=== PATIENT | male | born 1935 | race Caucasian/White ===

== ENCOUNTER 2024-09-19 15:18 | Emergency (ER) | payer MEDICARE, OTHER ==
--- OUTSIDE RECORDS SUMMARY | 2024-09-19 15:26 | XMS REPORT | Continuity of Care Document ---
Author Name Unknown Address [address] [facility] [place] [address] [facility] Address [address] [facility] [place] [address] Care Team Providers Care Box Office Manager Name Role Phone Shanti Buckley Primary Care Physician [phone] REYMUNDO SAGE Attending Clinician Unavailab le Deidra Kilpatrick MD Attending Clinician [phone] MEREDITH SHANKS Attending Clinician UnavailMeredith Elizabeth MD Attending Clinician DEIDRA KILPATRICK Attending Clinician Reymundo Myles Attending Clinician Unavailable ADOLFO GONSALEZ Attending Clinician Unavailable Eduardo Simpson MD Attending Clinician REYMUNDO SAGE M.D. Attending Clinician Unavail able TAYLOR CONKLIN P.A. Attending Clinician Unavail REYMUNDO Navas Admitting Clinician Unavailab Reymundo Kumar Admitting Clinician Unavailable Physician, No Primary or Family Admitting Clinic halle Unavailable LETY JUAREZ Admitting Clinician Unavail able Payers Payer Name Policy Type Policy Number Effective Date Expirati on Date Source MEDICARE PART A AND B [id number] 2001 00:00:00 MEDICARE PART A AND B Medicare [id number] 2023 00:00:00 [facility] Other [id number] 2023 00:00:00 Problems Condition Name Condition Details Condition Category Status Onset Date Resolution Date Last Treatment Date Treating Clinician Comments Source Hearing loss Hearing loss Disease Active 8-15 00:00: 00 Kuldip Devine Keloid scar Keloid Scar Problem Active 7-30 00:00: 00 [facility] 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 Active 7 00:00: 00 [facility] Pain of right lower leg Pain of Right Lower Leg Problem Active 703 00:00: 00 [facility] Abscess of knee Abscess of Knee Problem Active 11-15 00:00: 00 [facility] Abscess of lower leg Abscess of Lower Leg Problem Active 11-15 00:00: 00 [facility] 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 Active 11-15 00:00: 00 [facility] NENITA (iron deficiency anemia) NENITA (iron deficiency anemia) Disease Active 11-12 00:00: 00 Kuldip Devine Mixed hyperlipid emia Mixed hyperlipid emia Disease Active 11-12 00:00: 00 Kuldip Devine S/P TKR (total knee replacemen t) S/P TKR (total knee replacemen t) Disease Active 11-12 00:00: 00 Kuldip Devine Simple obesity Simple obesity Disease Active 11-12 00:00: 00 Kuldip Devine Bladder cancer Bladder cancer Disease Active 11-12 00:00: 00 Kuldip Devine HTN (hypertens ion) HTN (hypertens ion) Disease Active 11-12 00:00: 00 Kuldip Devine Pain of right knee joint Pain of Right Knee Joint Problem Active 11-10 00:00: 00 [facility] Benign essential hypertensi on Benign essential hypertensi on Disease Active 1-05 00:00: 00 Kuldip Devine History of High blood pressure History of High blood pressure Problem Resolve d [facility] Right knee pain Right knee pain Problem Active [facility] 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 Active [facility] Aftercare following right knee joint replacemen t surgery Aftercare following right knee joint replacemen t surgery Problem Active [facility] Draining postoperat daija wound, initial encounter Draining postoperat daija wound, initial encounter Problem Active [facility] Dehiscence of incision Dehiscence of incision Problem Active [facility] 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 [facility] Redness and swelling of knee Redness and swelling of knee Problem Active [facility] Allergies, Adverse Reactions, Alerts Allergy Name Allergy Type Status Severity Reaction(s) Onset Date Inactive Date Treating Clinician Comments Source No Known Allergie s DA Active U 12-19 00:00: 00 [facility] NO KNOWN ALLERGIE S SYSTEMIC Active [facility] NO KNOWN ALLERGIE S SYSTEMIC Active [facility] NO KNOWN ALLERGIE S SYSTEMIC Active [facility] NO KNOWN ALLERGIE S SYSTEMIC Active [facility] NO KNOWN ALLERGIE S SYSTEMIC Active [facility] ALLERGIE S NOT ON FILE SYSTEMIC Active [facility] NO KNOWN ALLERGIE S SYSTEMIC Active [facility] NO KNOWN ALLERGIE S SYSTEMIC Active [facility] NO KNOWN ALLERGIE S SYSTEMIC Active [facility] Social History Social Habit Start Date Stop Date Quantity Comments Source Gender identity 2023-08-21 00:06:32 Identifies as male gender (finding) [facility] History of tobacco use Current smoker [facility] Sexual orientation [facility] History of Social function 2023-11-04 00:00:00 2023-11-04 00:00:00 [facility] Exposure to SARS-CoV-2 (event) 2022-08-31 00:00:00 2022-09-10 13:52:00 Not sure [facility] Tobacco use and exposure 2022-09-10 00:00:00 2022-09-10 00:00:00 Smokeless tobacco non-user [facility] Alcoholic beverage intake 2022-09-10 00:00:00 2022-09-10 00:00:00 Current drinker of alcohol (finding) [facility] Sex assigned at 1935 00:00:00 1935 00:00:00 [facility] Smoking Status Start Date Stop Date Source Ex-smoker [facility] Never smoked tobacco [facility] Medications Ordered Medication Name Filled Medication Name Start Date Stop Date Current Medication? Ordering Clinician Indication Dosage Frequency Signature (SIG) Comments Components Source moexipril (Univasc) 15 MG tablet moexipril (Univasc) 15 MG tablet 2023-05 012 00:00: 00 03-21 00:00 :00 No [id number] 7.5mg QD Take 0.5 tablets by mouth 1 time each day. [facility] [place] [facility] sulfamethox azole-trime thoprim (Bactrim DS) 800-160 MG per tablet sulfamethox azole-trime thoprim (Bactrim DS) 800-160 MG per tablet 9-16 00:00: 00 02-12 23:59 :00 No [id number] 1{tbl} Take 1 tablet by mouth 1 time for 1 dose. Take one tablet morning of procedure [facility] moexipril (Univasc) 7.5 MG tablet moexipril (Univasc) 7.5 MG tablet 01-11 00:00: 00 03-10 00:00 :00 No [id number] 7.5mg QD Take 1 tablet by mouth 1 time each day. Goal BP < 140/90 Kuldip Devine celecoxib (CeleBREX) 200 MG capsule celecoxib (CeleBREX) 200 MG capsule 12-22 00:00: 00 Yes TAKE 1 CAPSULE BY MOUTH TWICE DAILY WITH MEALS FOR 14 DAYS Kuldip Devine doxycycline (Monodox) 100 MG capsule doxycycline (Monodox) 100 MG capsule 11-12 21:42: 27 01-11 00:00 :00 No 100mg Q.5D Take 100 mg by mouth in the morning and 100 mg in the evening. Take with at least 8 ounces (large glass) of water, do not lie down for 30 minutes after. Kuldip Devine amoxicillin -clavulanat e (Augmentin) 875-125 MG tablet amoxicillin -clavulanat e (Augmentin) 875-125 MG tablet 11-12 21:42: 27 01-11 00:00 :00 No 875mg Q.5D Take 875 mg by mouth in the morning and 875 mg in the evening. Kuldip Devine amoxicillin (Amoxil) 875 MG tablet amoxicillin (Amoxil) 875 MG tablet 11-12 21:42: 03 11-12 00:00 :00 No 875mg Q.5D Take 875 mg by mouth in the morning and 875 mg in the evening. Kuldip Devine HYDROcodone -acetaminop hen ([place]) 5-325 MG tablet HYDROcodone -acetaminop hen ([place]) 5-325 MG tablet 11-08 15:57: 32 01-11 00:00 :00 No 1{tbl} Q4H 1 tablet every 4 hours if needed for severe pain (7-10). Kuldip Devine senna-docus ate sodium (Senokot-S) 8.6-50 MG tablet senna-docus ate sodium (Senokot-S) 8.6-50 MG tablet 11-08 15:57: 32 01-11 00:00 :00 No 2{tbl} Q24H Take 2 tablets by mouth daily as needed for constipati on. Kuldip Devine LACTOBACILL US RHAMNOSUS, GG, PO LACTOBACILL US RHAMNOSUS, GG, PO 11-08 15:57: 32 01-11 00:00 :00 No 1{capsu le} QD Take 1 capsule by mouth 1 time each day. Kuldip Devine Multiple Vitamin (multivitam in) tablet Multiple Vitamin (multivitam in) tablet 11-08 15:57: 32 01-11 00:00 :00 No 1{tbl} QD Take 1 tablet by mouth 1 time each day. Kuldip Devine omega-3 acid ethyl esters (Lovaza) 1 g capsule omega-3 acid ethyl esters (Lovaza) 1 g capsule 11-08 15:57: 32 01-11 00:00 :00 No 1g QD Take 1 g by mouth 1 time each day. Kuldip Devine moexipril (Univasc) 15 MG tablet moexipril (Univasc) 15 MG tablet 206 00:00: 00 01-11 00:00 :00 No = 1 tab, PO, Daily, # 90 tab, 2 Refill(s), Pharmacy: [facility] 482, 175.26, cm, 07/05/23 14:17:00 [employer], Height, 94.773, kg, 07/05/23 14:17:00 [employer], Weight Kuldip Devine meloxicam (Mobic) 15 MG tablet 4-14 00:00: 00 01-09 04:59 :00 No [id number] 15mg QD Take 1 tablet (15 mg total) by mouth 1 (one) time each day. [facility] Aspirin 81 81 MG Oral Tablet Chewable Aspirin 81 81 MG Oral Tablet Chewable 01-06 00:00: 00 Yes REYMUNDO SAGE M.D. Q0.5D TAKE 1 TABLET Twice daily TDD:2 [facility] Cephalexin 500 MG Oral Capsule Cephalexin 500 MG Oral Capsule 01-06 00:00: 00 Yes REYMUNDO SAGE M.D. 1 Q0.3333D TAKE 1 CAPSULE 3 times daily TDD:3 [facility] Celecoxib 200 MG Oral Capsule Celecoxib 200 MG Oral Capsule 8-10 00:00: 00 Yes REYMUNDO SAGE M.D. TAKE ONE CAPSULE BY MOUTH TWICE A DAY WITH FOOD [facility] Colace 100 MG Oral Capsule Colace 100 MG Oral Capsule 8-10 00:00: 00 Yes REYMUNDO SAGE M.D. Q0.5D TAKE 1 CAPSULE TWICE DAILY NEEDED. [facility] Ondansetron HCl - 4 MG Oral Tablet Ondansetron HCl - 4 MG Oral Tablet 8-10 00:00: 00 Yes REYMUNDO SAGE M.D. 1 Q8H TAKE 1 TABLET Every 8 hours PRN TDD:2 [facility] Gabapentin 300 MG Oral Capsule Gabapentin 300 MG Oral Capsule 810 00:00: 00 Yes REYMUNDO SAGE M.D. TAKE 1 CAPSULE AT BEDTIME. [facility] traMADol HCl - 50 MG Oral Tablet traMADol HCl - 50 MG Oral Tablet 810 00:00: 00 Yes REYMUNDO SAGE M.D. TAKE 1 TABLET EVERY 4 TO 6 HOURS NEEDED. [facility] Minocycline HCl - 100 MG Oral Capsule Minocycline HCl - 100 MG Oral Capsule 8-06 00:00: 00 Yes REYMUNDO SAGE M.D. 1 Q0.5D TAKE 1 CAPSULE TWICE DAILY [facility] aspirin 81 MG oral suspension aspirin 81 MG oral suspension 8-06 00:00: 00 Yes 0 Refill(s) Kuldip Hdez [facility] Adult Aspirin Regimen 81 MG Oral Tablet Delayed Release Adult Aspirin Regimen 81 MG Oral Tablet Delayed Release 0 6-19 00:00: 00 Yes TAYLOR CONKLIN P.Leonela Take 1 tab PO BID for DVT prophylaxs is [facility] Ciprofloxac in HCl - 500 MG Oral Tablet Ciprofloxac in HCl - 500 MG Oral Tablet 0 6-13 00:00: 00 Yes REYMUNDO SAGE M.D. Q12H TAKE 1 TABLET EVERY 12 HOURS DAILY. [facility] traMADol HCl - 50 MG Oral Tablet traMADol HCl - 50 MG Oral Tablet 2019-0 6-09 00:00: 00 Yes REYMUNDO SAGE M.D. TAKE 1 TABLET EVERY 4 TO 6 HOURS NEEDED. [facility] Aspirin 81 81 MG Oral Tablet Chewable Aspirin 81 81 MG Oral Tablet Chewable 2019-0 09 00:00: 00 Yes REYMUNDO SAGE Krystle 1 Q0.5D TAKE 1 TABLET Twice daily TDD:2 [facility] Celecoxib 200 MG Oral Capsule Celecoxib 200 MG Oral Capsule 2019-0 - 00:00: 00 Yes REYMUNDO RuvalcabaKimber Q0.5D TAKE 1 CAPSULE TWICE DAILY WITH FOOD. [facility] Colace 100 MG Oral Capsule Colace 100 MG Oral Capsule 2019-0 -09 00:00: 00 Yes REYMUNDO RuvalcabaKimber Q0.5D TAKE 1 CAPSULE TWICE DAILY NEEDED. [facility] Gabapentin 300 MG Oral Capsule Gabapentin 300 MG Oral Capsule 2019-0 11-05 00:00: 00 Yes REYMUNDO RuvalcabaKimber TAKE 1 CAPSULE AT BEDTIME. [facility] Ondansetron HCl - 4 MG Oral Tablet Ondansetron HCl - 4 MG Oral Tablet 2019-0 11-05 00:00: 00 Yes DWYER NANCYGAYE Krystle 1 Q8H TAKE 1 TABLET Every 8 hours PRN TDD:2 [facility] Celecoxib 200 MG Oral Capsule Celecoxib 200 MG Oral Capsule 2019-0 10-28 00:00: 00 Yes REYMUNDO RuvalcabaKimber Q0.5D TAKE 1 CAPSULE TWICE DAILY WITH FOOD. [facility] Aspirin 81 MG Oral Tablet Chewable Aspirin 81 MG Oral Tablet Chewable 2019-0 18 00:00: 00 Yes REYMUNDO RuvalcabaKimber 1 Q0.5D TAKE 1 TABLET TWICE DAILY [facility] Celecoxib 200 MG Oral Capsule Celecoxib 200 MG Oral Capsule 2019-0 18 00:00: 00 Yes REYMUNDO RuvalcabaKimber 1 Q0.5D TAKE 1 CAPSULE TWICE DAILY [facility] Colace 100 MG Oral Capsule Colace 100 MG Oral Capsule 2019-0 -18 00:00: 00 Yes REYMUNDO RuvalcabaKimber Q0.5D TAKE 1 CAPSULE TWICE DAILY. [facility] Ondansetron HCl - 4 MG Oral Tablet Ondansetron HCl - 4 MG Oral Tablet 2019-0 -18 00:00: 00 Yes REYMUNDO RuvalcabaKimber 1 Q8H TAKE 1 TABLET EVERY 8 HOURS [facility] Gabapentin 300 MG Oral Capsule Gabapentin 300 MG Oral Capsule 2019-0 5-18 00:00: 00 Yes REYMUNDO SAGE M.D. 1 TAKE 1 CAPSULE BEDTIME [facility] traMADol HCl - 50 MG Oral Tablet traMADol HCl - 50 MG Oral Tablet 10-14 00:00: 00 Yes REYMUNDO RuvalcabaKimber Take 1 tab Q4-6H prn for pain [facility] doxycycline hyclate 100 mg tablet doxycycline hyclate 100 mg tablet No doxycyclin e hyclate 100 mg tablet [facility] aspirin 81 mg tablet,yaima yed release Take 1 tablet twice a day by oral route with meals for 30 days. to prevent a blood clot aspirin 81 mg tablet,yaima yed release Take 1 tablet twice a day by oral route with meals for 30 days. to prevent a blood clot No 1 BID aspirin 81 mg tablet,del ayed release Take 1 tablet twice a day by oral route with meals for 30 days. to prevent a blood clot [facility] gabapentin 300 mg capsule TAKE 1 CAPSULE BY MOUTH ONCE DAILY NEEDED gabapentin 300 mg capsule TAKE 1 CAPSULE BY MOUTH ONCE DAILY NEEDED No gabapentin 300 mg capsule TAKE 1 CAPSULE BY MOUTH ONCE DAILY NEEDED [facility] hydrocodone 10 mg-acetamin ophen 325 mg tablet TAKE 1 TABLET BY MOUTH EVERY 6 HOURS NEEDED hydrocodone 10 mg-acetamin ophen 325 mg tablet TAKE 1 TABLET BY MOUTH EVERY 6 HOURS NEEDED No 1 Q6H hydrocodon e 10 mg-acetami nophen 325 mg tablet TAKE 1 TABLET BY MOUTH EVERY 6 HOURS NEEDED [facility] methocarbam ol 500 mg tablet TAKE 1 TABLET BY MOUTH THREE TIMES DAILY NEEDED methocarbam ol 500 mg tablet TAKE 1 TABLET BY MOUTH THREE TIMES DAILY NEEDED No methocarba mol 500 mg tablet TAKE 1 TABLET BY MOUTH THREE TIMES DAILY NEEDED [facility] ondansetron HCl 4 mg tablet TAKE 1 TABLET BY MOUTH EVERY 8 HOURS NEEDED ondansetron HCl 4 mg tablet TAKE 1 TABLET BY MOUTH EVERY 8 HOURS NEEDED No ondansetro n HCl 4 mg tablet TAKE 1 TABLET BY MOUTH EVERY 8 HOURS NEEDED [facility] tramadol 50 mg tablet TAKE 1 TABLET BY MOUTH EVERY 6 HOURS NEEDED tramadol 50 mg tablet TAKE 1 TABLET BY MOUTH EVERY 6 HOURS NEEDED No tramadol 50 mg tablet TAKE 1 TABLET BY MOUTH EVERY 6 HOURS NEEDED [facility] docusate sodium 100 mg capsule TAKE 1 CAPSULE BY MOUTH TWICE DAILY NEEDED docusate sodium 100 mg capsule TAKE 1 CAPSULE BY MOUTH TWICE DAILY NEEDED No docusate sodium 100 mg capsule TAKE 1 CAPSULE BY MOUTH TWICE DAILY NEEDED [facility] eq adult ld aspirin 81mg tab TAKE 1 TABLET BY MOUTH TWICE DAILY WITH MEALS eq adult ld aspirin 81mg tab TAKE 1 TABLET BY MOUTH TWICE DAILY WITH MEALS No eq adult ld aspirin 81mg tab TAKE 1 TABLET BY MOUTH TWICE DAILY WITH MEALS [facility] vancomycin 5 gram intravenous solution vancomycin 5 gram intravenous solution No vancomycin 5 gram intravenou s solution [facility] doxycycline hyclate 100 mg capsule TAKE 1 CAPSULE BY MOUTH TWICE DAILY AROUND THE CLOCK doxycycline hyclate 100 mg capsule TAKE 1 CAPSULE BY MOUTH TWICE DAILY AROUND THE CLOCK No 1capsul e(s) BID doxycyclin e hyclate 100 mg capsule TAKE 1 CAPSULE BY MOUTH TWICE DAILY AROUND THE CLOCK [facility] lisinopril 10 mg tablet TAKE 1 TABLET BY MOUTH ONCE DAILY, GOAL BLOOD PRESSURE LESS THAN 150/90 lisinopril 10 mg tablet TAKE 1 TABLET BY MOUTH ONCE DAILY, GOAL BLOOD PRESSURE LESS THAN 150/90 No lisinopril 10 mg tablet TAKE 1 TABLET BY MOUTH ONCE DAILY, GOAL BLOOD PRESSURE LESS THAN 150/90 [facility] Immunizations Ordered Immunization Name Filled Immunization Name Date Status Comments Source Pneumococcal Conjugate PCV 13 Pneumococcal Conjugate PCV 13 2017-07-28 00:00:00 Completed [facility] Pneumococcal Polysaccharide PPSV23 Pneumococcal Polysaccharide PPSV23 2006-03-18 00:00:00 [facility] Vital Signs Vital Name Observation Time Observation Value Comments S ource Body Weight 2024-03-30 00:00:00 200 [lb_av] [facility] BMI (Body Mass Index) 2024-03-30 00:00:00 27.9 kg/m2 [facility] Height 2024-03-30 00:00:00 71 [in_i] Dia [facility] Systolic blood pressure 2024-02-13 14:26:00 121 mm[Hg] [facility] Diastolic blood pressure 2024-02-13 14:26:00 62 mm[Hg] [facility] Heart rate 2024-02-13 14:26:00 86 /min [facility] [place] [facility] Body height 2024-02-13 14:26:00 180.3 cm [facility] [place] [facility] Body weight 2024-02-13 14:26:00 88.905 kg [facility] BMI 2024-02-13 14:26:00 27.34 kg/m2 [facility] [place] [facility] Systolic blood pressure 2024-02-13 14:26:00 121 mm[Hg] [facility] Diastolic blood pressure 2024-02-13 14:26:00 62 mm[Hg] [facility] Epic Heart rate 2024-02-13 14:26:00 86 /min [facility] Body height 2024-02-13 14:26:00 180.3 cm [facility] [place] [facility] Body weight 2024-02-13 14:26:00 88.905 kg [facility] BMI 2024-02-13 14:26:00 27.34 kg/m2 [facility] [place] [facility] BMI (Body Mass Index) 2024-01-23 00:00:00 27.9 kg/m2 [facility] Body Weight 2024-01-23 00:00:00 200 [lb_av] Aza lar[facility] Height 2024-01-23 00:00:00 71 [in_i] [facility] Systolic blood pressure 2024-01-12 10:36:00 97 mm[Hg] [facility] Diastolic blood pressure 2024-01-12 10:36:00 59 mm[Hg] [facility] Epic Heart rate 2024-01-12 10:36:00 77 /min [facility] [place] [facility] Body weight 2024-01-12 10:36:00 96.163 kg [facility] [place] [facility] BMI 2024-01-12 10:36:00 36.39 kg/m2 [facility] [place] [facility] Systolic blood pressure 2024-01-12 10:36:00 97 mm[Hg] [facility] Epic Diastolic blood pressure 2024-01-12 10:36:00 59 mm[Hg] [facility] Heart rate 2024-01-12 10:36:00 77 /min [facility] Body weight 2024-01-12 10:36:00 96.163 kg [facility] BMI 2024-01-12 10:36:00 36.39 kg/m2 [facility] Systolic blood pressure 2023-11-09 15:58:00 106 mm[Hg] [facility] Diastolic blood pressure 2023-11-09 15:58:00 63 mm[Hg] [facility] Heart rate 2023-11-09 15:58:00 65 /[facility] 2023-11-09 15:58:00 36.5 Khadijah [facility] Body weight 2023-11-09 15:58:00 91.627 kg [facility] BMI 2023-11-09 15:58:00 29.83 kg/m2 [facility] Systolic blood pressure 2023-11-09 15:58:00 106 mm[Hg] [facility] Diastolic blood pressure 2023-11-09 15:58:00 63 mm[Hg] [facility] Heart rate 2023-11-09 15:58:00 65 /min [facility] Body temperature 2023-11-09 15:58:00 36.5 Khadijah [facility] Body weight 2023-11-09 15:58:00 91.627 kg [facility] BMI 2023-11-09 15:58:00 29.83 kg/m2 [facility] Procedures Procedure Date / Time Performed Performing Clinician Source Cystourethroscopy 2024-08-12 00:00:00 [facility] XR, knee, 3 view 2024-02-17 00:00:00 Joss mott [facility] POCT URINE DIPSTICK (INTRFC) 2024-02-13 14:26:00 Meredith Shanks [facility] CBC and differential 2024-01-12 00:00:00 [facility] Vitamin B12 2024-01-12 00:00:00 [facility] Folate 2024-01-12 00:00:00 [facility] Iron + transferrin + TIBC 2024-01-12 00:00:00 [facility] Ferritin 2024-01-12 00:00:00 [facility] Hemoglobin A1c 2024-01-12 00:00:00 Azra Ruff [facility] [id number] 2023-12-23 00:00:00 [facility] [id number] 2023-12-23 00:00:00 [facility] [id number] 2023-12-22 00:00:00 [facility] [id number] 2023-12-22 00:00:00 [facility] [id number] 2023-12-22 00:00:00 [facility] [id number] 2023-12-22 00:00:00 [facility] [id number] 2023-12-22 00:00:00 [facility] XR, tibia + fibula, 2 view 2023-11-11 00:00:00 [facility] [QL] SED RATE BY MODIFIED NED 2020-03-31 00:00:00 [facility] [QL] C-REACTIVE PROTEIN 2020-03-31 00:00:00 [facility] [U] XRAY KNEE 3 VWS RIGHT [id number] 2020-02-15 00:00:00 [facility] Post Op Promis 29 Survey 2020-01-25 00:00:00 [facility] Post Op Promis 29 Survey 2019-11-08 00:00:00 [facility]nee [facility] FISH Bladder Cancer [facility] Encounters Start Date/Time End Date/Time Encounter Type Admission Type Attending Clinicians Care Facility Care Department Encounter ID Source 2022-09-10 13:54:45 Outpatient [facility] [id number] [facility] 2022-09-03 11:28:57 Outpatient [facility] [id number] [facility] 2022-08-31 15:36:14 Outpatient [facility] [id number] [facility] 2022-08-30 08:53:40 Outpatient [facility] [id number] [facility] 2022-06-04 12:55:43 Outpatient [facility] [id number] [facility] 2019-11-06 06:02:54 Inpatient RE[facility]UNDO SAGE [id number] 2024-04-09 00:00:00 2024-04-13 13:50:53 Erroneous Telephone Encounter Deidra Kilpatrick [facility] [id number] Kuldip Hdez [facility] 2024-03-30 00:00:00 2024-03-30 00:00:00 Reymundo [place]age II, MD: [id number] [address], [place] [address] , Ph. [phone] [facility] [place] [facility] [place] [facility] [place] [id number] [facility] 2024-03-19 00:00:00 2024-03-21 21:03:18 Telephone Deidra Kilpatrick [facility] [id number] [facility] 2024-03-08 00:00:00 2024-03-10 19:11:42 [facility] [id number] [facility] 2024-02-17 00:00:00 2024-02-17 00:00:00 Reymundo Sage II, MD: [id number] [facility] [address], [place] [address] , Ph. [phone] [facility] [place] [facility] [place] [facility] [place] [id number] [facility] 2024-02-13 14:20:28 2024-02-13 14:58:20 Outpatient Elective MEREDITH SHANKS EOUT EOUT [id number] [facility] 2024-02-13 14:30:00 2024-02-13 14:45:00 Office Visit Meredith Shanks [place] [address] [id number] Kuldip Hdez [facility] 2024-01-23 00:00:00 2024-01-23 00:00:00 Barby Parsons MD: [id number] [place] [address] , Ph. [phone] [facility] [place] [facility] [place] [facility] [id number] [facility] 2024-01-12 10:23:00 2024-01-12 11:41:41 Outpatient Elective DEIDRA KILPATRICK [facility] EOUT [id number] [facility] 2024-01-12 10:20:00 2024-01-12 11:41:41 Office Visit Deidra Kilpatrick [facility] [id number] 5 Kuldip Hdez [facility] 2024-01-06 00:00:00 2024-01-06 00:00:00 LATOSHA Villalta: [address] [address] , Ph. [phone] [facility] [place] [facility] [place] [facility] [place] [id number] [facility] 2023-12-29 00:00:00 2023-12-30 17:02:11 Erroneous Telephone Encounter Deidra Kilpatrick [facility] [id number] [id number] Kuldip Hdez [facility] 2023-11-28 00:00:00 2023-12-29 23:52:36 Telephone Deidra Kilpatrick [facility] [id number] Kuldip Hdez [facility] 2023-12-22 10:05:00 2023-12-26 18:24:00 Inpatient Reymundo Vincent [facility] SURG [id number] [facility] 2023-12-22 00:00:00 2023-12-22 00:00:00 Reymundo Sage II, MD: [address] [place] [address] , Ph. [phone] [facility] [place] [facility] [place] [facility] [id number] [facility] 2023-12-20 14:31:00 2023-12-20 14:31:00 Outpatient Reymundo Sage HCACL LABO [id number] [facility] 2023-12-16 14:20:00 2023-12-16 14:20:00 Outpatient Alona [place] HCACL LABO [id number] [facility] 2023-12-16 11:07:00 2023-12-16 11:07:00 Outpatient ALLYSON Sage Dwyer HCATO RADI [id number] [facility] 2023-12-09 00:00:00 2023-12-09 00:00:00 Reymundo Sage II, MD: [address] [address] , Ph. [phone] [facility] [place] [facility] [place] [id number] [facility] 2023-11-11 00:00:00 2023-11-11 00:00:00 Reymundo Sage II, MD: [address] [address] , Ph. [phone] [facility] [place] [facility] [place] [id number] [id number] [facility] 2023-11-09 15:00:00 2023-11-09 16:29:13 Office Visit Deidra Kilpatrick [facility] [id number] [facility] 2023-11-09 14:58:10 2023-11-09 16:29:13 Outpatient Elective DEIDRA KILPATRICK [facility] [id number] [facility] 2023-10-27 19:41:00 2023-11-02 15:58:00 Inpatient E ADOLFO GONSALEZ [facility] MED [id number] 33 [facility] 2023-10-31 00:00:00 2023-10-31 00:00:00 Reymundo Sage II, MD: [address] [place] [address] , Ph. [phone] [facility] - [facility] [place] [facility]Surgery [id number] [facility] 2022-09-10 14:15:00 2022-09-10 15:21:24 Outpatient [facility] [id number] [facility] 2022-09-10 14:30:00 2022-09-10 15:20:44 Office Visit Eduardo Simpson [facility] 2 [id number] [facility] 2021-10-08 08:27:00 2021-10-08 14:50:00 Outpatient MEREDITH SHANKS [facility] URO 75[address] [facility] 2020-03-31 14:30:00 2020-03-31 14:30:00 Appointmen t; REYMUNDO SAGE M.D. BRAL[place], [place], M.D. [facility] [id number] [place] [facility] 2020-02-18 14:30:00 2020-02-18 14:30:00 Appointmen t; REYMUNDO SAGE M.D. [place], [place], M.D. [facility] [id number] [place] 2020-01-21 13:45:00 2020-01-21 13:45:00 Appointmen t; TAYLOR CONKLIN, P.ATAYLOR KELLEY, P.A. [facility] [id number] [place] 2020-01-21 13:40:00 2020-01-21 13:40:00 Appointmen t; TAYLOR CONKLIN P.A. SCHULTZ, JARED, P.A. [facility] [id number] [place] 2020-01-08 05:50:00 2020-01-10 18:45:00 [facility] 2020-01-08 07:30:00 2020-01-08 07:30:00 Appointmen t; REYMUNDO SAGE M.D. [place], [place], M.D. [facility] [id number] [place] 2019-12-31 14:30:00 2019-12-31 14:30:00 Appointmen t; REYMUNDO SAGE M.D. BRAL[place], [place], M.D. [facility] [id number] [place] 2019-12-03 14:15:00 2019-12-03 14:15:00 Appointmen t; REYMUNDO SAGE M.D. [place], [place], M.D. [facility] [id number] [place] 2019-11-26 14:15:00 2019-11-26 14:15:00 Appointmen t; REYMUNDO SAGE M.D. [place]AL[place], [place], M.D. [facility] [id number] [place] 2019-11-19 14:15:00 2019-11-19 14:15:00 Appointmen t; REYMUNDO SAGE M.D. [place], [place], M.D. [facility] [id number] [place] 2019-11-16 10:15:00 2019-11-16 10:15:00 Appointmen t; REYMUNDO SAGE M.D. [place], [place], M.D. [facility] Orthopedics - [place] [address] [id number] [place] 2019-11-12 13:00:00 2019-11-12 13:00:00 Appointmen t; REYMUNDO SAGE M.D. [place], [place], M.D. [facility] [id number] [place] 2019-11-07 11:00:00 2019-11-07 11:00:00 Appointmen t; REYMUNDO SAGE M.D. [place], [place] M.D. [facility] at [facility] Orthopedic [facility] Spine [facility] [id number] [place] 2019-11-05 13:30:00 2019-11-05 13:30:00 Appointmen t; REYMUNDO SAGE M.D. [place], [place], M.D. [facility] - [place] 1 [id number] [place] 2019-10-29 13:00:00 2019-10-29 13:00:00 Appointmen t; REYMUNDO SAGE M.D. [place], [place], M.D. [facility] [id number] [place] 2019-10-15 07:48:00 2019-10-15 16:35:00 [facility] [address] [facility] 2019-10-15 09:00:00 2019-10-15 09:00:00 Appointmen t; REYMUNDO SAGE M.D. BRAL[place], [place], M.D. [facility] at [facility] Orthopedic [facility] Spine [facility] [id number] [place] 2019-10-01 15:30:00 2019-10-01 15:30:00 Appointmen t; REYMUNDO SAGE M.D. [place], [place], M.D. [facility] [place]opedics - [place] 1 [id number] [place] 2019-04-30 14:45:00 2019-04-30 14:45:00 Appointmen t; REYMUNDO SAGE M.D. BRAL[place], [place], M.D. [facility]oped[facility] at [facility] Orthopedic [facility] Spine [facility] [id number] [place] Results Test Description Test Time Test Comments Results Result Co mments Source [facility] EpicVancomycin [id number] 22:47:00* Test Item Value Reference Range Interpretation Comme nts Vancomycin AUC2 (test code = VANCAUC2) 12 mcg/mL 10-20 SPECIMEN COMMENT: Draw Vancomycin AUC2 (trough or pre-dose) 30 minutes prior to the next dose.Vancomycin [id number] 22:46:00* Test Item Value Reference Range Interpretation Comme nts Vancomycin AUC2 (test code = VANCAUC2) 12 mcg/mL 10-20 N SPECIMEN COMMENT: Draw Vancomycin AUC2 (trough or pre-dose) 30 minutes prior to the next dose.vancomycin [id number] 15:00:00* Test Item Value Reference Range Interpretation Comme nts vancomycin auc2 (test code = vancomycin auc2) 12 mcg/mL 10-20 performing lab: (test code = performing lab:) [facility] [id number] 22:37:00* Test Item Value Reference Range Interpretation Comme nts Vancomycin AUC2 (test code = VANCAUC2) 11 mcg/mL 10-20 SPECIMEN COMMENT: Draw Vancomycin AUC2 (trough or pre-dose) 30 minutes prior to the next dose.Vancomycin [id number] 22:37:00* Test Item Value Reference Range Interpretation Comme nts Vancomycin AUC2 (test code = VANCAUC2) 11 mcg/mL 10-20 N SPECIMEN COMMENT: Draw Vancomycin AUC2 (trough or pre-dose) 30 minutes prior to the next dose.vancomycin [id number] 15:00:00* Test Item Value Reference Range Interpretation Comme nts vancomycin auc2 (test code = vancomycin auc2) 11 mcg/mL 10-20 performing lab: (test code = performing lab:) [facility]OLIC [id number] 07:23:00* Test Item Value Reference Range Interpretation Comme nts SODIUM (test code = NA) 141 mmol/L 136-145 N POTASSIUM (test code = K) 5.0 mmol/L 3.5-5.1 N CHLORIDE (test code = CL) 106.0 mmol/L 98-107 N CARBON DIOXIDE (test code = CO2) 29.9 mmol/L 21-32 N GLUCOSE (test code = GLU) 123 mg/dL 74-106 H BLOOD UREA NITROGEN (test code = BUN) 29 mg/dL 7-18 H GLOMERULAR FILTRATION RATE (test code = GFR) 81.6 >60 The Glomerular Filtration Rate is a calculated parameterbased on serum Creatinine, patient age and sex. GFR valuesless than 60 mL/min/1.73 square meters are indicative ofChronic Kidney Disease. Values less than 15 mL/min/1.73square meters indicate Kidney failure. The calculation forGFR is based on the CKD-EPI (202) calculation. This formulais race indifferent and is the recommended formula for GFRby the National Kidney Foundation for Adults.The GFR will not calculate if the sex is unknown or if thepatient's age is <18 years. CREATININE (test code = CREAT) 0.91 mg/dL 0.70-1.30 N CALCIUM (test code = CA) 8.0 mg/dL 8.5-10.1 L CBC W/AUTO [id number] 07:04:00* Test Item Value Reference Range Interpretation Comme nts WHITE BLOOD CELL (test code = WBC) 8.6 K/mm3 5.5-11.0 N RED BLOOD CELL (test code = RBC) 2.99 M/mm3 4.2-5.4 L HEMOGLOBIN (test code = HGB) 7.9 g/dL 12-16 L HEMATOCRIT (test code = HCT) 25.5 % 37-47 L MEAN CELL VOLUME (test code = MCV) 85 fL 80-98 N MEAN CELL HGB (test code = MCH) 26.4 pg 27-34 L MEAN CELL HGB CONCENTRATION (test code = MCHC) 31.0 g/dL 30.8-34.1 N RED CELL DISTRIBUTION WIDTH (test code = RDW) 16.2 % 11-16 H PLT (test code = PLT) 338 K/mm3 130-400 N MEAN PLATELET VOLUME (test c ode = MPV) 9.5 fL 8.9-12.1 N NEUTROPHIL % (test code = NT%) 85.1 % 45-70 H LYMPHOCYTE % (test code = LY%) 8.3 % 20-40 L MONOCYTE % (test code = MO%) 5.7 % 3-10 N EOSINOPHIL % (test code = EO%) 0.0 % 1-5 L BASOPHIL % (test code = BA%) 0.1 % 0.0-1.1 N NEUTROPHIL # (test code = NT#) 7.28 K/mm3 2.00-7.50 N LYMPHOCYTE # (test code = LY#) 0.71 K/mm3 1.50-4.00 L MONOCYTE # (test code = MO#) 0.49 K/mm3 0.2-0.8 N EOSINOPHIL # (test code = EO#) 0.00 K/mm3 0.04-0.4 L BASOPHIL # (test code = BA#) 0.01 K/mm3 0.02-0.10 L MANUAL DIFF REQUIRED (test c ode = MDIFF) NO MANUAL DIFF NUCLEATED RED BLOOD CELL (te st code = NRBC) 0 % 0-0 N Vancomycin [id number] 19:33:00* Test Item Value Reference Range Interpretation Comme nts Vancomycin AUC1 (test code = VANCAUC1) 29.2 mcg/mL 20-60 N SPECIMEN COMMENT: Draw Vancomycin AUC1 (peak or after dose) 1 hour after the end of the Vancomycin infusion.vancomycin [id number] 18:45:00* Test Item Value Reference Range Interpretation Comme nts vancomycin auc1 (test code = vancomycin auc1) 29.2 mcg/mL 20-60 performing lab: (test code = performing lab:) [facility] METABOLIC [id number] 06:49:00* Test Item Value Reference Range Interpretation Comme nts SODIUM (test code = NA) 139 mmol/L 136-145 N POTASSIUM (test code = K) 5.0 mmol/L 3.5-5.1 N CHLORIDE (test code = CL) 103.0 mmol/L 98-107 N CARBON DIOXIDE (test code = CO2) 29.8 mmol/L 21-32 N GLUCOSE (test code = GLU) 136 mg/dL 74-106 H BLOOD UREA NITROGEN (test code = BUN) 28 mg/dL 7-18 H GLOMERULAR FILTRATION RATE (test code = GFR) 62.2 >60 The Glomerular Filtration Rate is a calculated parameterbased on serum Creatinine, patient age and sex. GFR valuesless than 60 mL/min/1.73 square meters are indicative ofChronic Kidney Disease. Values less than 15 mL/min/1.73square meters indicate Kidney failure. The calculation forGFR is based on the CKD-EPI (202) calculation. This formulais race indifferent and is the recommended formula for GFRby the National Kidney Foundation for Adults.The GFR will not calculate if the sex is unknown or if thepatient's age is <18 years. CREATININE (test code = CREAT) 1.14 mg/dL 0.70-1.30 N CALCIUM (test code = CA) 7.7 mg/dL 8.5-10.1 L SPECIMEN COMMENT: POD #1HGB [id number] 06:22:00* Test Item Value Reference Range Interpretation Comme nts HEMOGLOBIN (test code = HGB) 7.7 g/dL 12-16 L HEMATOCRIT (test code = HCT) 24.7 % 37-47 L SPECIMEN COMMENT: POD #1Hemoglobin and Hematocrit panel - [id number] 04:30:00* Test Item Value Reference Range Interpretation Comme nts hemoglobin (test code = hemoglobin) 7.7 g/dL 12-16 L hematocrit (test code = hematocrit) 24.7 % 37-47 L performing lab: (test code = performing lab:) [facility] [id number] 04:30:00* Test Item Value Reference Range Interpretation Comme nts sodium (test code = sodium) 139 mmol/L 136-145 potassium (test code = potassium) 5.0 mmol/L 3.5-5.1 chloride (test code = chloride) 103.0 mmol/L 98-107 carbon dioxide (test code = carbon dioxide) 29.8 mmol/L 21-32 glucose (test code = glucose) 136 mg/dL 74-106 H blood urea nitrogen (test co de = blood urea nitrogen) 28 mg/dL 7-18 H glomerular filtration rate ( test code = glomerular filtration rate) 62.2 >60 creatinine (test code = creatinine) 1.14 mg/dL 0.70-1.30 calcium (test code = calcium) 7.7 mg/dL 8.5-10.1 L performing lab: (test code = performing lab:) [facility]OSYLATED HEMOGLOBIN (HA1C)2023-12-20 22:22:00* Test Item Value Reference Range Interpretation Comme nts GLYCOSYLATED HEMOGLOBIN (HA1C) (test code = GLYHGB) 5.0 % 4.8-5.9 Any conditi on that shortens erythocyte survival or decreasesmean erythrocyte age (e.g., recovery from acute blood loss,hemolytic anemai) will falsely lower HGBA1c resultsregardless of the method used. HGBA1c results frompatients with HbSS, HbCC and HbSc must be interpreted withcaution given the pathological processes, including anemia,increased red cell turnover, transfusion requirements, thatadversely impact HGBA1c as a marker of long-term glycemiccontrol. Alternative forms of testing such as fructosamineshould be considered for these patients.Any condition that shortens erythocyte survival or decreasesmean erythrocyte age (e.g., recovery from acute blood loss,hemolytic anemia) will falsely lower HGBA1c resultsregardless of the method used. HGBA1c results from patientswith HbSS, HbCC, and HbSc must be interpreted with cautiongiven the pathological processes, including anemia,increased red cell turnover, transfusion requirements, thatadversely impact HGBA1c as a marker of long-term glycemiccontrol. Alternative forms of testing such as fructosamineshould be considered for these patients.DONE AT: [facility] [address], [place] [address] GLYCOSYLATED HEMOGLOBIN (HA1C)2023-12-20 22:22:00* Test Item Value Reference Range Interpretation Comme nts GLYCOSYLATED HEMOGLOBIN (HA1C) (test code = GLYHGB) 5.0 % 4.8-5.9 N Any conditi on that shortens erythocyte survival or decreasesmean erythrocyte age (e.g., recovery from acute blood loss,hemolytic anemia) will falsely lower HGBA1c resultsregardless of the method used. HGBA1c results from patientswith HbSS, HbCC, and HbSc must be interpreted with cautiongiven the pathological processes, including anemia,increased red cell turnover, transfusion requirements, thatadversely impact HGBA1c as a marker of long-term glycemiccontrol. Alternative forms of testing such as fructosamineshould be considered for these patients. C REACTIVE [id number] 14:13:00* Test Item Value Reference Range Interpretation Comme nts C REACTIVE PROTEIN (test cod e = CRP) 3.49 mg/dL < 0.3 H COMPREHENSIVE METABOLIC [id number] 14:13:00* Test Item Value Reference Range Interpretation Comme nts SODIUM (test code = NA) 139 mmol/L 136-145 N POTASSIUM (test code = K) 4.5 mmol/L 3.5-5.1 N CHLORIDE (test code = CL) 101.0 mmol/L 98-107 N CARBON DIOXIDE (test code = CO2) 30.8 mmol/L 21-32 N GLUCOSE (test code = GLU) 87 mg/dL 74-106 N BLOOD UREA NITROGEN (test code = BUN) 17 mg/dL 7-18 N GLOMERULAR FILTRATION RATE (test code = GFR) 74.6 >60 The Glomerular Filtration Rate is a calculated parameterbased on serum Creatinine, patient age and sex. GFR valuesless than 60 mL/min/1.73 square meters are indicative ofChronic Kidney Disease. Values less than 15 mL/min/1.73square meters indicate Kidney failure. The calculation forGFR is based on the CKD-EPI (2020) calculation. This formulais race indifferent and is the recommended formula for GFRby the National Kidney Foundation for Adults.The GFR will not calculate if the sex is unknown or if thepatient's age is <18 years. CREATININE (test code = CREAT) 0.98 mg/dL 0.70-1.30 N TOTAL PROTEIN (test code = PROT) 7.4 g/dL 6.4-8.2 N ALBUMIN (test code = ALB) 3.0 g/dL 3.4-5.0 L GLOBULIN (test code = GLOB) 4.4 g/dL 2.2-4.2 H ALBUMIN/GLOBULIN RATIO (test code = A/G) 0.7 0.7-2.0 N CALCIUM (test code = CA) 8.9 mg/dL 8.5-10.1 N BILIRUBIN TOTAL (test code = BILT) 0.40 mg/dL 0.2-1.00 N SGOT/AST (test code = AST) 15.0 U/L 15-37 N SGPT/ALT (test code = ALT) 24.0 U/L 16-63 N ALKALINE PHOSPHATASE TOTAL (test code = ALKP) 52 U/L 46-116 N SED [id number] 14:10:00* Test Item Value Reference Range Interpretation Comme nts SED RATE (test code = SEDW) 115 mm/hr 0-20 H PROTHROMBIN [id number] 13:29:00* Test Item Value Reference Range Interpretation Comme nts PROTHROMBIN TIME PATIENT (test code = PTP) 13.2 secs 9.4-12.5 H INTERNATIONAL NORMAL RATIO (test code = INR) 1.23 <2.0 RECOMMENDED THER APEUTIC RANGE FOR ORAL ANTICOAGULANTTREATMENT: CONDITION INRProphylaxis of venous thrombosis in 2.0 - 3.0 high-risk medical or surgical patientsTreatment of venous thrombosis 2.0 - 3.0Prevention of embolism 2.0 - 3.0Prevention of recurrent embolism, or 3.0 - 4.5 patients with mechanical prosthetic intravascular valves IS PATIENT ON ANTICOAGULANTS ? [facility] been notified if Patient is on Heparin Drip? NOTHROMBOPLASTIN TIME [id number] 13:29:00* Test Item Value Reference Range Interpretation Comme nts PTT ACTIVATED (test code = APTT) 35.1 secs 25.1-36.5 N IS PATIENT ON ANTICOAGULANTS ? [facility] been notified if Patient is on Heparin Drip? NOCBC W/AUTO [id number] 13:11:00* Test Item Value Reference Range Interpretation Comme nts WHITE BLOOD CELL (test code = WBC) 6.2 K/mm3 5.5-11.0 N RED BLOOD CELL (test code = RBC) 3.59 M/mm3 4.2-5.4 L HEMOGLOBIN (test code = HGB) 9.6 g/dL 12-16 L HEMATOCRIT (test code = HCT) 30.4 % 37-47 L MEAN CELL VOLUME (test code = MCV) 85 fL 80-98 N MEAN CELL HGB (test code = MCH) 26.7 pg 27-34 L MEAN CELL HGB CONCENTRATION (test code = MCHC) 31.6 g/dL 30.8-34.1 N RED CELL DISTRIBUTION WIDTH (test code = RDW) 15.5 % 11-16 N PLT (test code = PLT) 461 K/mm3 130-400 H MEAN PLATELET VOLUME (test c ode = MPV) 8.9 fL 8.9-12.1 N NEUTROPHIL % (test code = NT%) 61.0 % 45-70 N LYMPHOCYTE % (test code = LY%) 26.9 % 20-40 N MONOCYTE % (test code = MO%) 10.2 % 3-10 H EOSINOPHIL % (test code = EO%) 0.8 % 1-5 L BASOPHIL % (test code = BA%) 0.5 % 0.0-1.1 N NEUTROPHIL # (test code = NT#) 3.78 K/mm3 2.00-7.50 N LYMPHOCYTE # (test code = LY#) 1.67 K/mm3 1.50-4.00 N MONOCYTE # (test code = MO#) 0.63 K/mm3 0.2-0.8 N EOSINOPHIL # (test code = EO#) 0.05 K/mm3 0.04-0.4 N BASOPHIL # (test code = BA#) 0.03 K/mm3 0.02-0.10 N MANUAL DIFF REQUIRED (test c ode = MDIFF) NO MANUAL DIFF NUCLEATED RED BLOOD CELL (te st code = NRBC) 0 % 0-0 N CBC W Auto Differential panel - [id number] 12:15:00* Test Item Value Reference Range Interpretation Comme nts white blood cell (test code = white blood cell) 6.2 K/mm3 5.5-11.0 red blood cell (test code = red blood cell) 3.59 M/mm3 4.2-5.4 L hemoglobin (test code = hemoglobin) 9.6 g/dL 12-16 L hematocrit (test code = hematocrit) 30.4 % 37-47 L mean cell volume (test code = mean cell volume) 85 fL 80-98 mean cell HGB (test code = m marycarmen cell HGB) 26.7 pg 27-34 L mean cell HGB concentration (test code = mean cell HGB concentration) 31.6 g/dL 30.8-34.1 red cell distribution width (test code = red cell distribution width) 15.5 % 11-16 plt (test code = plt) 461 K/mm3 130-400 H mean platelet volume (test c ode = mean platelet volume) 8.9 fL 8.9-12.1 neutrophil % (test code = neutrophil %) 61.0 % 45-70 lymphocyte % (test code = lymphocyte %) 26.9 % 20-40 monocyte % (test code = mono cyte %) 10.2 % 3-10 H eosinophil % (test code = eosinophil %) 0.8 % 1-5 L basophil % (test code = baso rissa %) 0.5 % 0.0-1.1 neutrophil # (test code = neutrophil #) 3.78 K/mm3 2.00-7.50 lymphocyte # (test code = lymphocyte #) 1.67 K/mm3 1.50-4.00 monocyte # (test code = mono cyte #) 0.63 K/mm3 0.2-0.8 eosinophil # (test code = eosinophil #) 0.05 K/mm3 0.04-0.4 basophil # (test code = baso rissa #) 0.03 K/mm3 0.02-0.10 manual diff required (test c ode = manual diff required) NO manual diff nucleated red blood cell (te st code = nucleated red blood cell) 0 % 0-0 performing lab: (test code = performing lab:) [facility] Hospital[facility] (PT)2023-12-20 12:15:00* Test Item Value Reference Range Interpretation Comme nts prothrombin time patient (te st code = prothrombin time patient) 13.2 secs 9.4-12.5 H international normal ratio ( test code = international normal ratio) 1.23 <2.0 performing lab: (test code = performing lab:) [facility]althromboplastin time [id number] 12:15:00 * Test Item Value Reference Range Interpretation Comme nts PTT activated (test code = P TT activated) 35.1 secs 25.1-36.5 performing lab: (test code = performing lab[facility] [id number] 12:15:00* Test Item Value Reference Range Interpretation Comme nts sed rate (test code = sed rate) 115 mm/HR 0-20 H performing lab: (test code = performing lab:) [facility] reactive [id number] 12:15:00* Test Item Value Reference Range Interpretation Comme nts C reactive protein (test cod e = C reactive protein) 3.49 mg/dL < 0.3 H performing lab: (test code = performing lab:) [facility] HospitalComprehensive [facility] 2000 panel - Serum or [id number] 12:15:00* Test Item Value Reference Range Interpretation Comme nts sodium (test code = sodium) 139 mmol/L 136-145 potassium (test code = potassium) 4.5 mmol/L 3.5-5.1 chloride (test code = chloride) 101.0 mmol/L 98-107 carbon dioxide (test code = carbon dioxide) 30.8 mmol/L 21-32 glucose (test code = glucose) 87 mg/dL 74-106 blood urea nitrogen (test co de = blood urea nitrogen) 17 mg/dL 7-18 glomerular filtration rate ( test code = glomerular filtration rate) 74.6 >60 creatinine (test code = creatinine) 0.98 mg/dL 0.70-1.30 total protein (test code = t otal protein) 7.4 g/dL 6.4-8.2 albumin (test code = albumin) 3.0 g/dL 3.4-5.0 L globulin (test code = globulin) 4.4 g/dL 2.2-4.2 H albumin/globulin ratio (test code = albumin/globulin ratio) 0.7 0.7-2.0 calcium (test code = calcium) 8.9 mg/dL 8.5-10.1 bilirubin total (test code = bilirubin total) 0.40 mg/dL 0.2-1.00 SGOT/AST (test code = SGOT/AST) 15.0 U/L 15-37 SGPT/ALT (test code = SGPT/ALT) 24.0 U/L 16-63 alkaline phosphatase total ( test code = alkaline phosphatase total) 52 U/L 46-116 performing lab: (test code = performing lab:) [facility]cos[facility] hemoglobin (ha1c)2023-12-20 12:15:00* Test Item Value Reference Range Interpretation Comme nts glycosylated hemoglobin (ha1 c) (test code = glycosylated hemoglobin (ha1c)) 5.0 % 4.8-5.9 performing lab: (test code = performing lab:) [facility] St[facility] [Presence] in Specimen by Organism specific [id number] 12:15:00* Test Item Value Reference Range Interpretation Comme nts MRSA surveillance screen (te st code = MRSA surveillance screen) See Below performing lab: (test code = performing lab:) [facility] [id number] 12:15:00 * Test Item Value Reference Range Interpretation Comme nts mssa PCR surveillance screen (test code = mssa PCR surveillance screen) See Below performing lab: (test code = performing lab:) [id number] 16:52:00* Test Item Value Reference Range Interpretation Comme nts SYNOVIAL FLD COLOR (test code = COLSY) BLOODY LT. YELLOW A SYNOVIAL FLD APPEARANCE (test code = APPSY) BLOODY CLEAR SYNOVIAL FLD VOLUME (test code = VOLSY) 0.5 mL SYNOVIAL FLD WBC (test code = WBCSY) 26993.000 /MM3 0-200 H SYNOVIAL FLD RBC (test code = RBCSY) 445271.000 /mm3 0-2 H NOTE: An automated method is now being used to determinesynovial fluid WBC and RBC counts. The differential willstill be performed manually. SYNOVIAL FLD POLY (test code = POLYSY) 94 % 0-25 H SYNOVIAL FLD MONOCYTE (test code = MONOSY) 6 % 0-71 N SPECIMEN COMMENT: ASPIRATION RT KNEE DONE BY DR ZOHREH WASSERMAN FOR 2 WKSCell count and Differential panel - Synovial [id number] 12:29:00* Test Item Value Reference Range Interpretation Comme nts synovial fld color (test cod e = synovial fld color) BLOODY lt. yellow A synovial fld appearance (chata t code = synovial fld appearance) BLOODY clear synovial fld volume (test code = synovial fld volume) 0.5 mL synovial fld WBC (test code = synovial fld WBC) 83864.000 /mm3 0-200 H synovial fld RBC (test code = synovial fld RBC) 792736.000 /mm3 0-2 H synovial fld poly (test code = synovial fld poly) 94 % 0-25 H synovial fld monocyte (test code = synovial fld monocyte) 6 % 0-71 performing lab: (test code = performing lab:) [facility] [Identifier] in Specimen by Gram [id number] 12:29:00* Test Item Value Reference Range Interpretation Comme nts gram stain (test code = gram stain) See Below performing lab: (test code = performing lab:) [facility][U] XRAY KNEE 4 OR MORE VWS RIGHT [id number] 2019-04-30 14:44:00Images acquired, not reported on this accession number.[facility] Notes Upcoming Encounters Date/Time Note Provider Source 2024-04-13 13:51:01 [facility] Due Date Last Done Comments DTaP/Tdap/Td Vaccines (1 - Tdap) 08/03/1954 Zoster Vaccines (1 of 2) 1986 Respiratory Syncytial Virus (RSV) or >=60 (1 - 1-dose 75+ series) 08/03/2011 Influenza Vaccine (#1) 2024 Lipid Panel 07/05/2024 07/05/2023, 10/2023, 07/13/2022, Additional history exists Annual Physical 01/11/2025 01/12/2024, 01/12/2024 Medicare Annual Wellness (AWV) 02/10/2025 01/12/2024 Pneumococcal Vaccine: 65+ Years Completed 07/28/2017, 03/18/2006 HIB Vaccines Aged Out No longer eligi ble based on patient's age to complete this topic HPV Vaccines Aged Out No longer eligi ble based on patient's age to complete this topic Hepatitis A Vaccines Aged Out No long er eligible based on patient's age to complete this topic Hepatitis B Vaccines Aged Out No long er eligible based on patient's age to complete this topic IPV Vaccines Aged Out No longer eligi ble based on patient's age to complete this topic Meningococcal Vaccine Aged Out No sonia ehather eligible based on patient's age to complete this topic Rotavirus Vaccines Aged Out No longer eligible based on patient's age to complete this topic [id number] 13:51:01 [facility] HospitalZbljglv5470-54-66 21:03:28* [facility] HospitalKixnrff5232-44-14 21:03:28Upcoming Encounters Health Maintenance Due Date Last Done Comments DTaP/Tdap/Td Vaccines (1 - Tdap) 08/03/1955 Zoster Vaccines (1 of 2) 1986 Respiratory Syncytial Virus (RSV) or >=60 (1 - 1-dose 60+ series) 1996 Influenza Vaccine (#1) 2024 Lipid Panel 07/05/2024 07/05/2023, 10/2023, 07/13/2022, Additional history exists Medicare Annual Wellness (AWV) 02/10/2025 01/12/2024 Pneumococcal Vaccine: 65+ Years Completed 07/28/2017, 03/18/2006 HIB Vaccines Aged Out No longer eligi ble based on patient's age to complete this topic HPV Vaccines Aged Out No longer eligi ble based on patient's age to complete this topic Hepatitis A Vaccines Aged Out No long er eligible based on patient's age to complete this topic Hepatitis B Vaccines Aged Out No long er eligible based on patient's age to complete this topic IPV Vaccines Aged Out No longer eligi ble based on patient's age to complete this topic Meningococcal Vaccine Aged Out No sonia heather eligible based on patient's age to complete this topic Rotavirus Vaccines Aged Out No longer eligible based on patient's age to complete this topic [facility]Xfgjrfo5937-51-61 21:03:28 Diagnosis Primary hypertension - Primary Unspecified essential hypertension [facility] HospitalSdrftca4011-32-43 21:03:28 [facility] HospitalKtaqset8295-31-01 10:51:31 Patient called stating that the medication moexipril (Univasc) is not available in the 7.5 Dr. Kilpatrick wanted him to take and asked if there is anything else he could take that would be available. [facility] HospitalHeylvgj0855-54-38 19:11:53* [facility] HospitalRjnffpg5998-46-26 19:11:53Upcoming Encounters Health Maintenance Due Date Last Done Comments DTaP/Tdap/Td Vaccines (1 - Tdap) [birth year]03/1954 Zoster Vaccines (1 of 2) 1986 Respiratory Syncytial Virus (RSV) or >=60 (1 - 1-dose 60+ series) 1996 Influenza Vaccine (#1) 2024 Lipid Panel 07/05/2024 07/05/2023, 10/2023, 07/13/2022, Additional history exists Medicare Annual Wellness (AWV) 02/10/2025 01/12/2024 Pneumococcal Vaccine: 65+ Years Completed 07/28/2017, 03/18/2006 HIB Vaccines Aged Out No longer eligi ble based on patient's age to complete this topic HPV Vaccines Aged Out No longer eligi ble based on patient's age to complete this topic Hepatitis A Vaccines Aged Out No long er eligible based on patient's age to complete this topic Hepatitis B Vaccines Aged Out No long er eligible based on patient's age to complete this topic IPV Vaccines Aged Out No longer eligi ble based on patient's age to complete this topic Meningococcal Vaccine Aged Out No sonia heather eligible based on patient's age to complete this topic Rotavirus Vaccines Aged Out No longer eligible based on patient's age to complete this topic [facility] HospitalCfsnqtc2735-10-04 19:11:53 Diagnosis Primary hypertension Unspecified essential hypertension [facility] HospitalIduvvun9560-23-55 19:11:53 [facility] HospitalMalebfo0129-87-24 14:55:58* [facility] HospitalInpwxae5504-34-69 14:55:58* Meredith Shanks MD - 02/13/2024 2:30 PM CDT Cystoscopy : Indication: Bladder cancer Anesthesia: Under sterile conditions, Xylocaine jelly was inserted into the urethra for local anesthesia. Findings and procedure: The history, physical findings, current medications, and indications were reviewed prior to the procedure. I discussed the procedure with the patient, including possible complications. The patient took an antibiotic this morning. Using sterile technique and prep, the patient was draped in the supine position. Video cystoscopy was performed using the flexible cystoscope and sterile water. Residual urine: Clear Urethra: Normal course and caliber Prostate: small, non obstructive , no median lobe Bladder: 1+ trabeculations. No lesions. scar on R dome seen. Ureteral orifices: Effluxing clear urine The cystoscope was removed. The patient tolerated the procedure well. 10/08/21- Transurethral resection of bladder tumor, 2.5 cm. HG possible T1, no muscle present CT urogram 2.1cm right anterior bladder mass and right external iliac lymph node suspicious for metastasis. 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 does not want intravesical tx 08/29/2023: CT urogram no recurrence. Decreased size of the right external iliac lymph node follow up cysto in 6 murine cytology/fish today [facility] [id number] 14:55:58Scheduled Orders Health Maintenance Due Date Last Done Comments DTaP/Tdap/Td Vaccines (1 - Tdap) 08/03/1954 Zoster Vaccines (1 of 2) 1986 Respiratory Syncytial Virus (RSV) or >=60 (1 - 1-dose 60+ series) 1996 Influenza Vaccine (#1) 2024 Lipid Panel 07/05/2024 07/05/2023, 0210/2023, 07/13/2022, Additional history exists Medicare Annual Wellness (AWV) 02/10/2025 01/12/2024 Pneumococcal Vaccine: 65+ Years Completed 07/28/2017, 03/18/2006 HIB Vaccines Aged Out No longer eligi ble based on patient's age to complete this topic HPV Vaccines Aged Out No longer eligi ble based on patient's age to complete this topic Hepatitis A Vaccines Aged Out No long er eligible based on patient's age to complete this topic Hepatitis B Vaccines Aged Out No long er eligible based on patient's age to complete this topic IPV Vaccines Aged Out No longer eligi ble based on patient's age to complete this topic Meningococcal Vaccine Aged Out No sonia heather eligible based on patient's age to complete this topic Rotavirus Vaccines Aged Out No longer eligible based on patient's age to complete this topic [facility] HospitalAoavhus2054-86-50 14:55:58 Diagnosis Malignant neoplasm of urinar y bladder, unspecified site (HCC) [facility] HospitalExxjxcx2159-69-79 14:55:58 [facility] HospitalAgffaqp9692-97-34 21:49:08* [facility] HospitalKobwgzn0475-88-83 21:49:08* Deidra Kilpatrick MD - 01/12/2024 10:20 AM CDT Subjective : Chief Complaint: Eligio Sebastian is an 88 y.o. male here for an annual wellness visit. R Knee Infection/s/p revision TKA: Had recent R TKA approx 2-3 weeks ago , reports that he was told that he needed replacement for infection. Reports that he is taking IV antibiotics currently (? Vancomycin per outside meds). Unsure what antibiotic he is taking. Is also following the Infectious Disease Doctor (? Dr. Barby Parsons / affiliated w/ Ortho group) Ortho is Dr. Sage. Using cane vs. walker for ambulation. Has home health, but denies doing any PT/OT at this time. Taking ASA 81 mg, Celebrex (temp) per Ortho. Denies using any other meds prescribed, pain well controlled. Denies any wound issues/drainage from knee/leg. Believes has ortho follow up in approx 1 month and ID in approx 1 week. HTN: Taking Meoxipril 15 mg every day. Not checking BP regularity at home. Denies any CP, SOB, light-headedness/dizziness, visual changes or motor/sensory changes. Anemia: Denies any easy bruising or bleeding. Not taking any Iron supplementation. Hx of Bladder Cancer: Denies any urinary issues. Denies hematuria. Denies abdominal or back pain. Denies any sig issues with bowel movements, does use Prn stool softener for mild constipation. Has appt with Dr. Shanks next month. Had normal cysto and CT in spring. I have reviewed and reconciled the medication list with the patient today. Current Outpatient Medications Medication Sig Dispense Refill aspirin 81 MG oral suspension 0 Refill(s) celecoxib (CeleBREX) 200 MG capsule TAKE 1 CAPSULE BY MOUTH TWICE DAILY WITH MEALS FOR 14 DAYS moexipril (Univasc) 15 MG tablet = 1 tab, PO, Daily, # 90 tab, 2 Refill(s), Pharmacy: [facility], 175.26, cm, 07/05/23 14:17:00 [employer], Height, 94.773, kg, 07/05/23 14:17:00 [employer], Weight No current facility-administered medications for this visit. Health Risk Assessment, including hearing, nutrition, home safety, health status, Advance Care planning and fall risk reviewed. Hearing: Other: Recommend Audiology/ENT, pt wants to wait at this timeNutrition: Advise patient to see dentist. Encourage patient to design meal to include 50% vegetables/fruit, 25% lean protein and 25% whole grains. Home Safety: Encourage patient to keep emergency numbers by the phone or in their smartphone. Instruct patient to remove rugs, cords, or mats from floors in home to prevent falls. Advise patient to maintain working smoke alarms and fire extinguisher in the home. Health Status: Discussed medication compliance. Suggest taking medication with an existing habit to increase the likelihood patient will remember. Educated patient on drug therapy. Engage family members or caregivers to help fill pillboxes or remind patient to take medications. Fall Risk Assessment: Advise use of assistive device when walking. Avoid alcohol and sedative medications like sleeping aids. Advance Care Planning : Advanced Care Planning: Advance Directives packet given to patient to review and complete. Pt reports that he does have Advance Directives already. General Provider Comments/Recommendations: Encourage patient to adjust lifestyle, including nutrition and exercise, with goal of weight loss. Denies any issues with urination or sleep. Screened positive for cognitive impairment, pt denies any sig impairment in daily life. Doesn't get assistance from daughter with managing more complex tasks/activities. Doesn't desire further eval at this time. Review of SystemsAll other systems reviewed and are negative. Patient Health Questionnaire-2 Score: 1 Reports that he is more stressed currently 2/2 a lot of doctor appts/follow up with knee/leg infection. Objective :BP 97/59 | Pulse 77 | Wt 96.2 kg (212 lb) | BMI 36.39 kg/m? No results found. Physical Exam: Constitutional: Appearance: Normal appearance. HENT: Head: Normocephalic. Right Ear: Tympanic membrane normal. Left Ear: Tympanic membrane normal. Nose: Nose normal. Mouth/Throat: Mouth: Mucous membranes are moist. Pharynx: Oropharynx is clear. Eyes: Extraocular Movements: Extraocular movements intact. Pupils: Pupils are equal, round, and reactive to light. Cardiovascular: Rate and Rhythm: Normal rate and regular rhythm. Pulses: Normal pulses. Heart sounds: Normal heart sounds. Pulmonary: Effort: Pulmonary effort is normal. Breath sounds: Normal breath sounds. Abdominal: General: Abdomen is flat. Palpations: Abdomen is soft. Musculoskeletal: Cervical back: Normal range of motion. Right lower leg: No edema. Left lower leg: No edema. Comments: R knee w/ vertical excision, CDI. + mild swelling on R side relative to L, but no tenderness/warmth/erythema. Skin: General: Skin is warm and dry. Capillary Refill: Capillary refill takes less than 2 seconds. Neurological: General: No focal deficit present. Mental Status: He is alert and oriented to person, place, and time. Gait: Gait abnormal. Psychiatric: Mood and Affect: Mood normal. Behavior: Behavior normal. Assessment/Plan :Assessment & Plan Medicare annual wellness visit, subsequent -Discussed age appropriate preventative screening measures, counseled on maintaining healthy weight via diet/exercise/lifestyle, stress reduction tips, good sleep hygiene tips, & having routine dental care. The five year Health Maintenance schedule was reviewed with the patient and provided. Anemia, unspecified type -Pt with recent surgery, will likely have some post-op anemia. Has hx of NENITA per chart, but last iron studies were WNL w/o any supplementation. CTM symptomatically. RTC/ED precautions given. Orders: CBC and differential; Future Vitamin B12; Future Folate; Future Iron + transferrin + TIBC; Future Ferritin; Future Primary hypertension-BP low normal in office. Will reduce Moexipril to 7.5 mg every day from 15 mg every day. Counseled on diet/lifestyle/exercise modifications for optimization. Pt to alert if persistently >140/90, but goal for age < 150/90. Reports that has BP cuff at home. Orders:moexipril (Univasc) 7.5 MG tablet; Take 1 tablet by mouth 1 time each day. Goal BP < 140/90 Diabetes mellitus screening-Diabetes history in some of medical records, pt denies known history. A1c today, but glucose on labs have been WNL. Orders: Hemoglobin A1c; Future Infection of total knee replacement, subsequent encounter-Hx of infection with revision in the past. Continue follow up with Ortho and ID for further management. Malignant neoplasm of urinary bladder, unspecified site (HCC) -Continue follow up with Dr. Shanks per schedule. List of current healthcare providers: Patient Care Team: Deidra Kilpatrick MD as PCP - General (Internal Medicine) Yinka Guardado MD as PCP - MSSP Attributed Provider Reymundo Sage II, MD as Surgeon (Orthopaedic Surgery) Barby Parsons MD as Referring Physician (Infectious Diseases) [facility]2024-08-15 21:49:08Upcoming Encounters Scheduled Orders Name Type Priority Associated Diagnoses Orde r Schedule CBC and differential Lab Routine Anemia, unspeci fied type Expected: 01/12/2024 (Approximate), Expires: 01/11/2025 Vitamin B12 Lab Routine Anemia, unspecified type Expected: 01/12/2024 (Approximate), Expires: 01/11/2025 Folate Lab Routine Anemia, unspecified type Expected: 01/12/2024 (Approximate), Expires: 01/11/2025 Iron + transferrin + TIBC Lab Routine Anemia, un specified type Expected: 01/12/2024 (Approximate), Expires: 01/11/2025 Ferritin Lab Routine Anemia, unspecified type Expected: 01/12/2024 (Approximate), Expires: 01/11/2025 Hemoglobin A1c Lab Routine Diabetes shaheen itus screening Expected: 01/12/2024 (Approximate), Expires: 01/11/2025 Health Maintenance Due Date Last Done Comments DTaP/Tdap/Td Vaccines (1 - Tdap) 08/03/1955 Zoster Vaccines (1 of 2) 1986 Respiratory Syncytial Virus (RSV) or >=60 (1 - 1-dose 60+ series) 1996 Influenza Vaccine (#1) 2024 Lipid Panel 07/05/2024 07/05/2023, 02/10/2023, 07/13/2022, Additional history exists Medicare Annual Wellness (AWV) 02/10/2025 01/12/2024 Pneumococcal Vaccine: 65+ Years Completed 07/28/2017, 03/18/2006 HIB Vaccines Aged Out No longer eligi ble based on patient's age to complete this topic HPV Vaccines Aged Out No longer eligi ble based on patient's age to complete this topic Hepatitis A Vaccines Aged Out No long er eligible based on patient's age to complete this topic Hepatitis B Vaccines Aged Out No long er eligible based on patient's age to complete this topic IPV Vaccines Aged Out No longer eligi ble based on patient's age to complete this topic Meningococcal Vaccine Aged Out No sonia heather eligible based on patient's age to complete this topic Rotavirus Vaccines Aged Out No longer eligible based on patient's age to complete this topic [facility]Skvwtrh5994-64-99 21:49:08 Diagnosis Medicare annual wellness vis it, subsequent - Primary Anemia, unspecified type Primary hypertension Unspecified essential hypertension Diabetes mellitus screening Screening for diabetes mellitus Infection of total knee repl acement, subsequent encounter Malignant neoplasm of urinar y bladder, unspecified site (HCC) [facility] HospitalUwjyczw7869-67-90 21:49:08 [facility] HospitalAryllkt7319-83-45 09:36:00 [facility] Discharge Summary REPORT#:[id number] REPORT STATUS: Signed REPORT INITIALIZATION DATE:01/11/24 TIME: 935 PATIENT: ELIGIO SEBASTIAN UNIT #: [id number] [facility] [birth year][facility][birth year] AGE: 88 SEX: M ATTEND: Reymundo Sage II, MD ADM AUTHOR: Reymundo Sage II, MD REPT SERVICE DT/TIME: 01/11/24 0936 * ALL edits or amendments must be made on the electronic/computer document * General Information Discharge date: 12/26/23 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 Hospital Course and Findings The patient underwent the procedure without incident. Findings were significant for infected right total knee replacement. The patient was hemodynamically and medically monitored during the postoperative period. Anticoagulation was instituted for postoperative DVT prophylaxis. The patient was progressively able to tolerate PO pain medications and the appropriate diet. Physical therapy was instituted, with a progressive ability to ambulate and perform exercises. The patient was eventually deemed stable and safe for discharge. At discharge, the patient was comfortable, with a controlled pain level. There were no chest or abdominal symptoms present. Discharge physical examination demonstrated stable vital signs and no acute distress. The patient had an intact wound with no significant drainage, and no calf tenderness and a negative Parker s sign bilaterally. There were no neurologic or vascular deficits or changes from the preoperative state. Disposition: Discharged to home Discharge Condition: Stable Instructions: Instruction sheet given to patient Activity: Ambulate with assistance, with weight-bearing as instructed in the hospital. Diet: As per preoperatively Prescriptions 1. Pain Medications: As per discharge prescription, with progressive weaning as pain decreases 2. Anticoagulation: As per discharge prescription, or PreOp anticoagulant, as discussed with patient 3. Antibiotics per infectious disease Follow-up Appointment: Patient instructed to arrange appointment for an office visit in 2 weeks Med Rec Med Rec Discharge meds: Stop taking the following medications: ACETAMINOPHEN (TYLENOL) 325 MG TAB 650 MILLIGRAM ORAL EVERY 6 HOURS. as needed for PAIN Continue taking these medications: LISINOPRIL (ZESTRIL) 10 MG TAB 15 MILLIGRAM ORAL DAILY. Discharge Instructions Discharge Instructions Additional Discharge Routines: None at [address] [facility] #:[id number] END OF REPORT [id number] 17:02:21* [facility] [id number] 17:02:21Upcoming Encounters Health Maintenance Due Date Last Done Comments Medicare Annual Wellness (AWV) 1935 Diabetes: Foot Exam 1945 Diabetes: Retinopathy Screening 1945 DTaP/Tdap/Td Vaccines (1 - Tdap) 08/03/1955 Diabetes: Urine Protein Screening 08/03/1955 Zoster Vaccines (1 of 2) 1986 Respiratory Syncytial Virus (RSV) or >=60 (1 - 1-dose 60+ series) 1996 Diabetes: Hemoglobin A1C 10/31/2020 07/31/2020, 09/27 Influenza Vaccine (#1) 2024 Lipid Panel 07/05/2024 07/05/2023, 0 10/2023, 07/13/2022, Additional history exists Pneumococcal Vaccine: 65+ Years Completed 07/28/2017, 03/18/2006 HIB Vaccines Aged Out No longer eligi ble based on patient's age to complete this topic HPV Vaccines Aged Out No longer eligi ble based on patient's age to complete this topic Hepatitis A Vaccines Aged Out No long er eligible based on patient's age to complete this topic Hepatitis B Vaccines Aged Out No long er eligible based on patient's age to complete this topic IPV Vaccines Aged Out No longer eligi ble based on patient's age to complete this topic Meningococcal Vaccine Aged Out No sonia heather eligible based on patient's age to complete this topic Rotavirus Vaccines Aged Out No longer eligible based on patient's age to complete this topic [facility]7577[facility]15-65 17:02:21 [facility] HospitalCayvpog7342-96-53 23:56:07* [facility]Vjihuli7262-62-26 23:56:07Upcoming Encounters Health Maintenance Due Date Last Done Comments Medicare Annual Wellness (AWV) 1935 Diabetes: Foot Exam 1946 Diabetes: Retinopathy Screening 1946 DTaP/Tdap/Td Vaccines (1 - Tdap) 08/03/1955 Diabetes: Urine Protein Screening 08/03/1955 Zoster Vaccines (1 of 2) 1986 Respiratory Syncytial Virus (RSV) or >=60 (1 - 1-dose 60+ series) 1996 Diabetes: Hemoglobin A1C 10/31/2020 07/31/2020, 09/27 Influenza Vaccine (#1) 2024 Lipid Panel 07/05/2024 07/05/2023, 020 10/2023, 07/13/2022, Additional history exists Pneumococcal Vaccine: 65+ Years Completed 07/28/2017, 03/18/2006 HIB Vaccines Aged Out No longer eligi ble based on patient's age to complete this topic HPV Vaccines Aged Out No longer eligi ble based on patient's age to complete this topic Hepatitis A Vaccines Aged Out No long er eligible based on patient's age to complete this topic Hepatitis B Vaccines Aged Out No long er eligible based on patient's age to complete this topic IPV Vaccines Aged Out No longer eligi ble based on patient's age to complete this topic Meningococcal Vaccine Aged Out No sonia heather eligible based on patient's age to complete this topic Rotavirus Vaccines Aged Out No longer eligible based on patient's age to complete this topic [facility]Raluaky7539-17-93 23:56:07 [facility]Encympz7105-31-92 11:30:00 [facility]) Infectious Dis. Progress Note REPORT#:[id number] REPORT STATUS: Signed REPORT INITIALIZATION DATE:12/26/23 TIME: 113 PATIENT: ELIGIO SEBASTIAN UNIT #: [id number] ROOM/BED: [address] : [birth year] AGE: 88 SEX: M ATTEND: Reymundo Sage II, MD ADM AUTHOR: Barby Parsons MD REPT SERVICE DT/TIME: 12/26/23 1130 * ALL edits or amendments must be made on the electronic/computer document * Subjective Chief complaint: right TKA infection HPI: Pt is a 88 y/o male 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 this was complicated with infection and pt had surgical intervention but cannot tell me what was done. I do have cxs from 11/07/19 with Pseudomonas, Citrobacter and Enterobacter and another cx from 01/08/20 with CoNS that is Ox and TCN resistant and Bactrim and Clinda sens.Has no recollection of receiving IV abx. Several weeks ago he presented to [facility] with an abscess on the right tibia. It was drained and pt placed on IV abx followed by po Doxy and Augmentin . It has since resolved. Was seen by Dr Sage and aspiration done last week c/w infection although cxs have been negative. Comments: Pt up in chair, no complaints and pain controlled. Review of Systems Constitutional: Denies: chills, fever. Objective General VS/I O: Vital Signs Date Temp Pulse Resp B/P B/P Mean Pulse Ox FiO2 12/24-12/25 36.4-36.7 61-75 14-16 117-156/56-75 78.1-98.4 98-100 Last Documented: Result Date Time Pulse Ox 100 12/25 0741 B/P 156/57 12/25 0741 B/P Mean 90.1 12/25 0741 O2 Delivery Room air 12/25 0741 Temp 36.4 12/25 0741 Pulse 75 12/25 0741 Resp 14 12/25 0741 O2 Flow Rate 3 12/21 1941 Vital Signs: Date Time Temp Pulse Resp B/P B/P Pulse O2 O2 Flow FiO2 Mean Ox Delivery Rate 12/25 0741 36.4 75 14 156/57 90.1 100 Room air 12/25 0530 36.7 70 16 146/75 98.4 98 12/24 2304 36.4 74 16 117/58 78.1 98 12/24 1946 36.5 72 16 129/56 80.2 99 12/24 1454 36.4 68 16 127/60 82.7 99 12/24 1151 36.4 61 16 123/62 82.1 99 24 hour I O ending at 0700: 12/25 0700 12/24 1900 Intake Total 240.00 Output Total 200 Balance 240.00 -200 Intake, IV 240.00 Number 1 Bowel Movements Number 0 Incontinent Voids Number Voids 1 Output, Urine 200 PATIENT WEIGHT: Weight (lb): 210 Weight (oz): 7.08 Weight (kg): 95.254 Medications: Active Meds + DC'd Last 24 Hrs Vancomycin HCl (VANCOMYCIN AUC2) 1 EACH ONCE@1500 MISC (DC) Sodium Chloride (NACL 0.9% 10ML SYRINGE) 10 ML 0500,0900,1700,2100 IV Ketorolac Tromethamine (TORADOL) 15 MG Q6H PRN PRN IV Vancomycin HCl (VANCOCIN) 1.5 GM Q24H IV Sodium Chloride (SODIUM CHLORIDE 0.9%) 250 ML Famotidine (PEPCID) 40 MG DAILY PO Lisinopril (PRINIVIL) 15 MG DAILY PO Aspirin (ASPIRIN) 81 MG BID@0600,1700 PO Cefepime HCl (Cefepime HCl) 1 GM Q8H IV Sodium Chloride (SODIUM CHLORIDE 0.9%) 50 ML Docusate Sodium (COLACE) 100 MG BID PO Lactated Ringer's (LACTATED RINGERS) 1,000 ML .Q10H IV Miscellaneous Information (VANCOMYCIN PHARMACY TO DOSE) 1 EACH ASDIR IV (CKD) Methocarbamol (ROBAXIN) 500 MG Q6H PRN PRN PO Acetaminophen (TYLENOL) 650 MG Q4H PRN PRN PO Al Hydrox/Mg Hydrox/Simethicone (MAALOX PLUS) 30 ML Q6H PRN PRN PO Benzocaine/Menthol (CEPACOL SORE THROAT LOZENGE) 1 LOZENGE Q2H PRN PRN PO Bisacodyl (BISACODYL 10 MG SUPP) 10 MG ASDIR PRN RECTAL Bisacodyl (bisacodyL) 10 MG DAILY PRN PRN PO Hydrocodone Bitart/Acetaminophen (NORCO 5/325 TABLET) 1 UDTAB Q4H PRN PRN PO Hydrocodone Bitart/Acetaminophen (NORCO 10/325 TABLET) 1 UDTAB Q4H PRN PRN PO Hydromorphone HCl (DILAUDID 1 mg/mL PF Vial) 0.5 MG Q6H PRN PRN IV Hydroxyzine (ATARAX) 25 MG Q4H PRN PRN PO Magnesium Hydroxide (MILK OF MAGNESIA) 30 ML BEDTIME PRN PRN PO Ondansetron HCl (ZOFRAN) 4 MG Q8H PRN PRN IV Tramadol HCl (ULTRAM) 50 MG Q6H PRN PRN PO Antibiotic start date: Antibiotic: vanco/cef Physical Exam General appearance: alert, awake, oriented Wound/incision: Location: right knee Head/Eyes: normocephalic Cardiovascular: normal heart sounds, regular rate rhythm Respiratory: clear to auscultation Abdomen: non-tender, soft Neuro/TELEVISION JOURNALIST: alert, oriented X 3, normal speech Results Findings/Data: Laboratory Tests 12/24 1500 Toxicology Vancomycin Trough (AUC) (10 - 20 mcg/mL) 12 PATIENT: ELIGIO SEBASTIAN LOC: Y5TH U # : [id number] AGE/SX: 88/M ROOM: [facility] REG : 12/22/[address]: Reymundo Sage II, MD STATUS: ADM IN BED: A DIS : SPEC #: [id number] NABEEL: 12/22/23 STATUS: RES REQ # : [id number] RECD: 12/22/23-[address]: Reymundo Sage II, MD SOURCE: BF OTHER ENTR: 12/22/[address]: [facility]: ORDERED: BLOOD CULTURE COMMENTS: SPECIMEN SOURCE: RIGHT KNEE FLUID Procedure Result Verified Site > GRAM STAIN BLOOD CULTURE Final 12/24/23-336 CL RESULT 12/23/23 AEROBIC BOTTLE: GRAM POSITIVE COCCI IN CLUSTERS 12/24/23 ANAEROBIC BOTTLE: GRAM POSITIVE COCCI IN CLUSTERS > BLOOD CULTURE Preliminary 12/26/23-717 CL Organism 1 STAPHYLOCOCCUS EPIDERMIDIS Organism 2 COAG NEG STAPHYLOCOCCUS#2 IDENTIFICATION AND SENSITIVITY PENDING STAPHYLOCOCCUS SPP. BY VERIGENE Positive for STAPHYLOCOCCUS SPP. other than S.epidermidis, S.lugdunesis, S.aureus and Methicillin Resistant Staphylococcus aureus (MRSA) by Verigene nucleic acid test. Please call [facility] Microbiology Department for the organism Identification and Suceptibility request. (Organisms will be held for 4 days). Contaminated Blood Culture Growth of common skin frances includes : Coagulase - negative Staphylococcus species, Micrococcus species, Propionibacterium acnes, Bacillus species, "Viridans" - group streptococci OR Corynebacterium species from ONLY ONE bottle of a series of Blood Culture bottles represents a likely contamination. Suceptibility is NOT routinely performed on this organisms. If clinical consideration warrant antobiotic suceptibility testing. Please call Microbiology department (ORGANISMS WILL BE HELD FOR 4 DAYS). 1. STAPHYLOCOCCUS EPIDERMIDIS Target Route Dose RX AB Cost M.I.C. IQ ------ ----- ------ -- ------ -------- - ------ DAPTOMYCIN SA S <=0.5 LINEZOLID STA S <=1 OXACILLIN SA I >2 VANCOMYCIN SA S 2 CLINDAMYCIN STA S <=0.5 ERYTHRO STA S <=0.5 TETRA STA S <=4 RIFAMPIN STA S <=1 TRIM/SULFA PRUDENCE: <=0.5/9.5 SUSCEPTIBLE PRUDENCE units of measure = ug/mL CL - [facility] DONE AT: [facility] CLIA [id number] [address] [place] [id number] NIKOS FOLEY M.D. END OF REPORT Results: labs reviewed, vital signs reviewed, current med profile rev'd Treatment Prophylaxis Treatment Prophylaxis Lines: PICC Anti-infectives: cefepime, vancomycin Diagnosis, Assessment Plan Problem List/A P: 1. 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 Pt now presents with new abscess on tibia a few weeks ago and aspiration from knee c/w infection although cxs negative. He is now s/p explant. Cxs are growing 2 strains of CoNS. vanco levels look good. plan vanco 1.5 q 24 until Feb 01. Pt and know he will be on IV abx for 6 weeks. PICC has been placed.OK to DC home and f/up wih me in 4 weeks. at 1144 RPT #:[id number] END OF REPORT [id number] 09:25:00 [facility] ([facility]) Clinical Note REPORT#:[id number] REPORT STATUS: Signed REPORT INITIALIZATION DATE:12/26/23 TIME: 924 PATIENT: ELIGIO SEBASTIAN UNIT #: [id number] ROOM/BED: Y.512-A : [birth year] AGE: 88 SEX: M ATTEND: Reymundo Sage II, MD ADM AUTHOR: Gunnar Ott MD REPT SERVICE DT/TIME: 12/26/23924 * ALL edits or amendments must be made on the electronic/computer document * Clinical Note Note: [facility] Gunnar Miller M.D. (cell text [phone]) Assessment/Plan 1.) Anemia of acute blood loss- .Hgb 7.9 -12/24/23, asymptomatic. 2.) POD#4 Revision[Explant] Right TKA abx spacer- .acute multi-modal pain control and followup. Anticoagulation as per Dr. Sage. Abx as per Dr. Parsons(Cxs are growing a CoNS. vanco levels look good. plan vanco 1.5 q 24 until Feb 01. Pt and know he will be on IV abx for 6 weeks. PICC has been placed.) 3.) Hypertension- .follow BP and hold Rxs if SBP<120. 4.) OsteoArthritis Hx of bladder cancer- .continue on Rx. Prior Events/Overnight: R thigh pain (from tournquet?) Chief Complaint: No significant complaints. Objective Vital Signs: Date Time Temp Pulse Resp B/P B/P Pulse O2 O2 Flow FiO2 Mean Ox Delivery Rate 12/25 0741 97.5 75 14 156/57 90.1 100 Room air 12/25 0530 98.1 70 16 146/75 98.4 98 12/24 2304 97.5 74 16 117/58 78.1 98 12/24 1946 97.7 72 16 129/56 80.2 99 12/24 1454 97.5 68 16 127/60 82.7 99 12/24 1151 97.5 61 16 123/62 82.1 99 Gen: Alert, oriented, in mild discomfort Neck: No Masses, No Thyromegaly- CV: Regular Rate Rhythm / Edema- no significant Resp: Clear To Ascultation / Normal Respiratory Effort ABD: NonTender / NonDistended MS/Skin: No sign of compartment syndrome / +ankle DF/PF Other: knee immobilizer in place Labs/X-ray: Laboratory Tests: 12/24 1500 Toxicology Vancomycin Trough (AUC) (10 - 20 mcg/mL) 12 Gunnar Miller M.D. at 0953 RPT #:[id number] END OF REPORT [id number] 10:37:00 [facility] ([facility]) Infectious Dis. Progress Note REPORT#:[id number] REPORT STATUS: Signed REPORT INITIALIZATION DATE:12/25/23 TIME: 1037 PATIENT: ELIGIO SEBASTIAN UNIT #: [id number] ROOM/BED: Y.512-A : [birth year] AGE: 88 SEX: M ATTEND: Reymundo Sage II, MD ADM AUTHOR: Barby Parsons MD REPT SERVICE DT/TIME: 12/25/23 1037 * ALL edits or amendments must be made on the electronic/computer document * Subjective Chief complaint: right TKA infection HPI: Pt is a 88 y/o male 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 this was complicated with infection and pt had surgical intervention but cannot tell me what was done. I do have cxs from 11/07/19 with Pseudomonas, Citrobacter and Enterobacter and another cx from 01/08/20 with CoNS that is Ox and TCN resistant and Bactrim and Clinda sens.Has no recollection of receiving IV abx. Several weeks ago he presented to [facility] with an abscess on the right tibia. It was drained and pt placed on IV abx followed by po Doxy and Augmentin . It has since resolved. Was seen by Dr Sage and aspiration done last week c/w infection although cxs have been negative. Patient reports: Yes: pain controlled. No: complaints. Review of Systems Constitutional: Denies: chills, fever. Objective General VS/I O: Vital Signs Date Temp Pulse Resp B/P B/P Mean Pulse Ox FiO2 12/23-12/24 36.0-36.5 63-70 15-16 111-149/52-66 71.4-89.9 96-99 Last Documented: Result Date Time Pulse Ox 96 12/24 0711 B/P 149/61 12/24 0711 B/P Mean 89.9 12/24 0711 Temp 36.5 12/24 0711 Pulse 63 12/24 0711 Resp 16 12/24 0711 O2 Delivery Room air 12/23 1529 O2 Flow Rate 3 12/21 194 Vital Signs: Date Time Temp Pulse Resp B/P B/P Pulse O2 O2 Flow FiO2 Mean Ox Delivery Rate 12/24 0711 36.5 63 16 149/61 89.9 96 12/24 0412 36.2 65 15 130/66 87.2 97 12/23 2216 36.0 65 15 111/52 71.4 98 12/23 1929 36.1 70 15 130/57 81.0 98 07/27 1529 36.2 68 16 123/62 82.3 99 Room air 24 hour I O ending at 0700: 12/24 0700 12/23 1900 Intake Total 30.00 Output Total 200 175 Balance -170.00 -175 Intake, IV 30.00 Number 1 1 Bowel Movements Number Voids 1 Output, Urine 200 175 PATIENT WEIGHT: Weight (lb): 210 Weight (oz): 7.08 Weight (kg): 95.254 Medications: Active Meds + DC'd Last 24 Hrs Vancomycin HCl (VANCOMYCIN AUC2) 1 EACH ONCE@1500 MISC Vancomycin HCl (VANCOMYCIN AUC2) 1 EACH ONCE@1500 MISC (DC) Sodium Chloride (NACL 0.9% 10ML SYRINGE) 10 ML 0500,0900,1700,2100 IV Ketorolac Tromethamine (TORADOL) 15 MG Q6H PRN PRN IV Vancomycin HCl (VANCOCIN) 1.5 GM Q24H IV Sodium Chloride (SODIUM CHLORIDE 0.9%) 250 ML Famotidine (PEPCID) 40 MG DAILY PO Lisinopril (PRINIVIL) 15 MG DAILY PO Aspirin (ASPIRIN) 81 MG BID@0600,1700 PO Cefepime HCl (Cefepime HCl) 1 GM Q8H IV Sodium Chloride (SODIUM CHLORIDE 0.9%) 50 ML Docusate Sodium (COLACE) 100 MG BID PO Lactated Ringer's (LACTATED RINGERS) 1,000 ML .Q10H IV Miscellaneous Information (VANCOMYCIN PHARMACY TO DOSE) 1 EACH ASDIR IV (CKD) Methocarbamol (ROBAXIN) 500 MG Q6H PRN PRN PO Acetaminophen (TYLENOL) 650 MG Q4H PRN PRN PO Al Hydrox/Mg Hydrox/Simethicone (MAALOX PLUS) 30 ML Q6H PRN PRN PO Benzocaine/Menthol (CEPACOL SORE THROAT LOZENGE) 1 LOZENGE Q2H PRN PRN PO Bisacodyl (BISACODYL 10 MG SUPP) 10 MG ASDIR PRN RECTAL Bisacodyl (bisacodyL) 10 MG DAILY PRN PRN PO Hydrocodone Bitart/Acetaminophen (NORCO 5/325 TABLET) 1 UDTAB Q4H PRN PRN PO Hydrocodone Bitart/Acetaminophen (NORCO 10/325 TABLET) 1 UDTAB Q4H PRN PRN PO Hydromorphone HCl (DILAUDID 1 mg/mL PF Vial) 0.5 MG Q6H PRN PRN IV Hydroxyzine (ATARAX) 25 MG Q4H PRN PRN PO Magnesium Hydroxide (MILK OF MAGNESIA) 30 ML BEDTIME PRN PRN PO Ondansetron HCl (ZOFRAN) 4 MG Q8H PRN PRN IV Tramadol HCl (ULTRAM) 50 MG Q6H PRN PRN PO Antibiotic start date: Antibiotic: vanco/cef Physical Exam General appearance: alert, awake, oriented Wound/incision: Location: right knee Head/Eyes: normocephalic Cardiovascular: normal heart sounds, regular rate rhythm Respiratory: clear to auscultation Abdomen: non-tender, soft Neuro/TELEVISION JOURNALIST: alert, oriented X 3, normal speech Results Findings/Data: Microbiology: 12/21 1556 KNEE: Acid Fast Bacilli Smear - CAN Cancelled: WRONG TEST ORDERED 12/21 1556 KNEE: Acid Fast Bacilli Culture - CAN Cancelled: WRONG TEST ORDERED 12/21 1556 KNEE: Fungal Culture - CAN Cancelled: WRONG TEST ORDERED 12/21 1540 BF OTHER: Blood Culture - RES COAG NEG STAPHYLOCOCCUS COAG NEG STAPHYLOCOCCUS#2 12/21 1540 BF OTHER: Blood Culture - RES 12/21 1538 KNEE: Acid Fast Bacilli Smear - ORD 12/21 1538 KNEE: Acid Fast Bacilli Culture - ORD 12/21 1538 KNEE: Fungal Culture - ORD 12/21 1538 KNEE: Wound Culture - ORD 12/21 1538 KNEE: Anaerobic Culture - ORD 12/21 1538 KNEE: Gram Stain - ORD 12/21 1535 KNEE: Acid Fast Bacilli Smear - RECD 12/21 1535 KNEE: Acid Fast Bacilli Culture - RECD 12/21 1535 KNEE: Fungal Culture - RECD 12/21 1535 KNEE: Wound Culture - RES 12/21 1535 KNEE: Anaerobic Culture - RES 12/21 1535 KNEE: Gram Stain - RES 12/21 1530 KNEE: Acid Fast Bacilli Smear - RECD 12/21 1530 KNEE: Acid Fast Bacilli Culture - RECD 12/21 1530 KNEE: Fungal Culture - RECD 12/21 1530 KNEE: Wound Culture - RES COAG NEG STAPHYLOCOCCUS 12/21 1530 KNEE: Anaerobic Culture - RES 12/21 1530 KNEE: Gram Stain - RES 12/21 1525 KNEE: Acid Fast Bacilli Smear - RECD 12/21 1525 KNEE: Acid Fast Bacilli Culture - RECD 12/21 1525 KNEE: Fungal Culture - RECD 12/21 1525 KNEE: Wound Culture - RES 12/21 1525 KNEE: Anaerobic Culture - RES 12/21 1525 KNEE: Gram Stain - RES 12/21 1520 KNEE: Acid Fast Bacilli Smear - RECD 12/21 1520 KNEE: Acid Fast Bacilli Culture - RECD 12/21 1520 KNEE: Fungal Culture - RECD 12/21 1520 KNEE: Wound Culture - RES 12/21 1520 KNEE: Anaerobic Culture - RES 12/21 1520 KNEE: Gram Stain - RES Laboratory Tests 12/23 1500 Toxicology Vancomycin Trough (AUC) (10 - 20 mcg/mL) 11 Results: labs reviewed, vital signs reviewed, current med profile rev'd Treatment Prophylaxis Treatment Prophylaxis Lines: PICC CVC/PICC documentation: The data below has been imported from nursing documentation. Any exceptions have been noted below under Provider comments. CVC/PICC insertion date/time: PICC multi lumen double Basilic vein Right Inserted 12/23/23 1800 Provider comments on imported nursing data: [] Anti-infectives: cefepime, vancomycin Diagnosis, Assessment Plan Problem List/A P: 1. 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 Pt now presents with new abscess on tibia a few weeks ago and aspiration from knee c/w infection although cxs negative. He is now s/p explant. Cxs are growing a CoNS. vanco levels look good. plan vanco 1.5 q 24 until Feb 01. Pt and know he will be on IV abx for 6 weeks. PICC has been placed. at 1043 RPT #:[id number] END OF REPORT [id number] 09:54:00 [facility] ([facility]) Clinical Note REPORT#:[id number] REPORT STATUS: Signed REPORT INITIALIZATION DATE:12/25/23 TIME: 953 PATIENT: ELIGIO SEBASTIAN UNIT #: [id number] ROOM/BED: [facility]-A : [birth year] AGE: 88 SEX: M ATTEND: Reymundo Sage II, MD ADM AUTHOR: Gunnar Ott MD REPT SERVICE DT/TIME: 12/25/23953 * ALL edits or amendments must be made on the electronic/computer document * Clinical Note Note: [facility] Gunnar Miller M.D. (cell text [phone]) Assessment/Plan 1.) Anemia of acute blood loss- .Hgb 7.9 -12/24/23, asymptomatic. 2.) POD#3 Revision[Explant] Right TKA abx spacer- .acute multi-modal pain control and followup. Anticoagulation as per Dr. Sage. Abx as per Dr. Parsons. 3.) Hypertension- .follow BP and hold Rxs if SBP<120. 4.) OsteoArthritis Hx of bladder cancer- .continue on Rx. Prior Events/Overnight: Uneventful. Chief Complaint: No significant complaints. Objective Vital Signs: Date Time Temp Pulse Resp B/P B/P Pulse O2 O2 Flow FiO2 Mean Ox Delivery Rate 12/24 0711 97.7 63 16 149/61 89.9 96 12/24 0412 97.2 65 15 130/66 87.2 97 12/23 2216 96.8 65 15 111/52 71.4 98 12/23 1929 97.0 70 15 130/57 81.0 98 12/23 1529 97.2 68 16 123/62 82.3 99 Room air Gen: Alert, oriented, in mild discomfort Neck: No Masses, No Thyromegaly- CV: Regular Rate Rhythm / Edema- no significant Resp: Clear To Ascultation / Normal Respiratory Effort ABD: NonTender / NonDistended MS/Skin: No sign of compartment syndrome / +ankle DF/PF Other: Labs/X-ray: Laboratory Tests: 12/23 1500 Toxicology Vancomycin Trough (AUC) (10 - 20 mcg/mL) 11 Gunnar Miller M.D. at 0925 RPT #:[id number] END OF REPORT [id number] 09:29:00 [facility] ([facility]) Clinical Note REPORT#:[id number] REPORT STATUS: Signed REPORT INITIALIZATION DATE:12/25/23 TIME: 928 PATIENT: ELIGIO SEBASTIAN UNIT #: [id number] ROOM/BED: [address] : [birth year] AGE: 88 SEX: M ATTEND: Reymundo Sage II, MD ADM AUTHOR: Genevieve Bey MD REPT SERVICE DT/TIME: 12/25/23928 * ALL edits or amendments must be made on the electronic/computer document * Clinical Note Note: 88M s/p right knee antibiotic spacer on 12/22/23 S: NAEON. Pain controlled. O: AFVSS GEN: NAD, sitting up in bed MSK: right knee: dressing C/D/I, KI in place, able to DF/PF ankle, SILT SP/DP/T, foot warm and well perfused Cultures: tissue cultures: coag neg staph A/P: 88M s/p right knee antibiotic spacer on 12/22/23 - continue current pain regimen - follow up culture results - IM consult for medical management - Appreciate Dr. Parsons's assitance with antibiotic rec's - PT/OT for mobilization - DVT ppx: ASA 81mg BID - Dispo: pending culture results and definitive antibiotics at 0929 RPT #:[id number] END OF REPORT [id number] 08:40:00 [facility] ([facility]) Pharmacy Prog.Note-Vancomycin REPORT#:[id number] REPORT STATUS: Signed REPORT INITIALIZATION DATE:12/25/23 TIME: 839 PATIENT: ELIGIO SEBASTIAN UNIT #: [id number] [facility] [birth year][facility][birth year] AGE: 88 SEX: M ATTEND: Reymundo Sage II, MD ADM AUTHOR: Kia Duque RPh REPT SERVICE DT/TIME: 12/25/23 0840 * ALL edits or amendments must be made on the electronic/computer document * Vancomycin Vancomycin Medication Therapy Goal: AUC 400-600 mg*hr/L Indication for treatment: BONE AND JOINT INFECTION Current therapy: VANCOMYCIN 1.5GM IV Q24HR X 42 DAYS CEFEPIME 1GM IV Q8HR X 42 DAYS Day of therapy: Weight: Actual weight (kg): 95.25 [place] body weight (kg): 70.7 Dosing weight (kg): 80.5 VS and I/O: Vital Signs Date Temp Pulse Resp B/P B/P Mean Pulse Ox FiO2 12/23-12/24 36.0-36.5 63-70 15-16 111-149/52-66 71.4-89.9 96-99 72 hours ending at 0700 12/24 19012/23 19012/22 1900 Intake 30.00 360.00 770.00 195.00 Total Output 200 175 700 800 Total Balance -170.00 -175 -340.00 -30.00 195.00 Intake, IV 30.00 260.00 290.00 75.00 Intake, 100 480 120 Oral Number 1 1 1 Bowel Movements Number 0 Incontinen t Voids Number 1 2 1 2 Voids Output, 200 175 700 800 Urine Patient 95.254 kg Weight 72 Hour I O Total 12/24 0700 Intake Total 30.00 360.00 965.00 Output Total 375 700 800 Balance -345.00 -340.00 165.00 Labs: Laboratory Tests: 12/23 12/22 1500 1845 Toxicology Vancomycin Peak (AUC) (20 - 60 mcg/mL) 29.2 Vancomycin Trough (AUC) (10 - 20 mcg/mL) 11 Laboratory Test : 12/23 12/22 0519 0430 Chemistry BUN (7 - 18 mg/dL) 29 H 28 H Creatinine (0.70 - 1.30 mg/dL) 0.91 1.14 Hematology WBC (5.5 - 11.0 K/mm3) 8.6 Microbiology: 12/22 1555 KNEE: Acid Fast Bacilli Smear - CAN Cancelled: WRONG TEST ORDERED 12/22 1555 KNEE: Acid Fast Bacilli Culture - CAN Cancelled: WRONG TEST ORDERED 12/21 1556 KNEE: Fungal Culture - CAN Cancelled: WRONG TEST ORDERED 12/21 1540 BF OTHER: Blood Culture - RES COAG NEG STAPHYLOCOCCUS COAG NEG STAPHYLOCOCCUS#2 12/21 1540 BF OTHER: Blood Culture - RES 12/21 1538 KNEE: Acid Fast Bacilli Smear - ORD 12/21 1538 KNEE: Acid Fast Bacilli Culture - ORD 12/21 1538 KNEE: Fungal Culture - ORD 12/21 1538 KNEE: Wound Culture - ORD 12/21 1538 KNEE: Anaerobic Culture - ORD 12/21 1538 KNEE: Gram Stain - ORD 12/21 1535 KNEE: Acid Fast Bacilli Smear - RECD 12/21 1535 KNEE: Acid Fast Bacilli Culture - RECD 12/21 1535 KNEE: Fungal Culture - RECD 12/21 1535 KNEE: Wound Culture - RES 12/21 1535 KNEE: Anaerobic Culture - RES 12/21 1535 KNEE: Gram Stain - RES 12/21 1530 KNEE: Acid Fast Bacilli Smear - RECD 12/21 1530 KNEE: Acid Fast Bacilli Culture - RECD 12/21 1530 KNEE: Fungal Culture - RECD 12/21 1530 KNEE: Wound Culture - RES COAG NEG STAPHYLOCOCCUS 12/21 1530 KNEE: Anaerobic Culture - RES 12/21 1530 KNEE: Gram Stain - RES 12/21 1525 KNEE: Acid Fast Bacilli Smear - RECD 12/21 1525 KNEE: Acid Fast Bacilli Culture - RECD 12/21 1525 KNEE: Fungal Culture - RECD 12/21 1525 KNEE: Wound Culture - RES 12/21 1525 KNEE: Anaerobic Culture - RES 12/21 1525 KNEE: Gram Stain - RES 12/21 1520 KNEE: Acid Fast Bacilli Smear - RECD 12/21 1520 KNEE: Acid Fast Bacilli Culture - RECD 12/21 1520 KNEE: Fungal Culture - RECD 12/21 1520 KNEE: Wound Culture - RES 12/21 1520 KNEE: Anaerobic Culture - RES 12/21 1520 KNEE: Gram Stain - RES Drug admin history: Lab Lab Level SCr Info [employer]st Med Dose Interaction/Dialysis Date/Time Date/Time Notes: Treatment plan: consult, cont current regimen/dose Regimen: AUC1= 29.2 ON 12/23/23@1845. AUC2=11 ON 12/24/23@1500, TRUE TROUGH = 10.36, T1/2= 14.37 HR, AUC24 = 445.90, SCR = 0.91 ON 12/24/23. CONTINUE CURRENT THERAPY OF VANCO 1.5GM IV Q24HR. NEXT TROUGH SCHEDULED FOR 12/25/23@1500 at 0853 RPT #:[id number] END OF REPORT [id number] 09:26:00 [facility] ([facility]) Clinical Note REPORT#:[id number] REPORT STATUS: Signed REPORT INITIALIZATION DATE:12/24/23 TIME: 925 PATIENT: ELIGIO SEBASTIAN UNIT #: [id number] ROOM/BED: [address] : [birth year] AGE: 88 SEX: M ATTEND: Reymundo Sage II, MD ADM AUTHOR: Gunnar Ott MD REPT SERVICE DT/TIME: 12/24/23925 * ALL edits or amendments must be made on the electronic/computer document * Clinical Note Note: [facility] Gunnar Miller M.D. (cell text [phone]) Assessment/Plan 1.) Anemia of acute blood loss- .Hgb 7.9 (from 7.7), asymptomatic. 2.) POD#2 Revision[Explant] Right TKA abx spacer- .acute multi-modal pain control and followup. Anticoagulation as per Dr. Sage. Abx as per Dr. Parsons. 3.) Hypertension- .follow BP and hold Rxs if SBP<120. 4.) OsteoArthritis Hx of bladder cancer- .continue on Rx. Prior Events/Overnight: Uneventful. Chief Complaint: No significant complaints. Objective Vital Signs: Date Time Temp Pulse Resp B/P B/P Pulse O2 O2 Flow FiO2 Mean Ox Delivery Rate 12/23 0721 97.3 55 16 120/47 71.2 99 Room air 12/23 0327 96.8 92 18 139/68 91.9 95 12/23 0007 96.8 71 18 136/68 90.2 95 12/22 1920 97.2 68 18 124/60 81.4 97 12/22 1556 97.9 66 16 109/48 68.0 99 Room air 12/22 1119 97.3 65 16 108/52 70.7 100 Room air Gen: Alert, oriented, in mild discomfort Neck: No Masses, No Thyromegaly- CV: Regular Rate Rhythm / Edema- no significant Resp: Clear To Ascultation / Normal Respiratory Effort ABD: NonTender / NonDistended MS/Skin: No sign of compartment syndrome / +ankle DF/PF Other: Labs/X-ray: Laboratory Tests: 12/23 12/22 0519 1845 Chemistry Sodium (136 - 145 mmol/L) 141 Potassium (3.5 - 5.1 mmol/L) 5.0 Chloride (98 - 107 mmol/L) 106.0 Carbon Dioxide (21 - 32 mmol/L) 29.9 BUN (7 - 18 mg/dL) 29 H Creatinine (0.70 - 1.30 mg/dL) 0.91 Glomerular Filtr Rate (>60) 81.6 Glucose (74 - 106 mg/dL) 123 H Calcium (8.5 - 10.1 mg/dL) 8.0 L Hematology WBC (5.5 - 11.0 K/mm3) 8.6 RBC (4.2 - 5.4 M/mm3) 2.99 L Hgb (12 - 16 g/dL) 7.9 L Hct (37 - 47 %) 25.5 L MCV (80 - 98 fL) 85 MCH (27 - 34 pg) 26.4 L MCHC (30.8 - 34.1 g/dL) 31.0 RDW (11 - 16 %) 16.2 H Plt Count (130 - 400 K/mm3) 338 MPV (8.9 - 12.1 fL) 9.5 Neut % (Auto) (45 - 70 %) 85.1 H Lymph % (Auto) (20 - 40 %) 8.3 L Kenedy % (Auto) (3 - 10 %) 5.7 Eos % (Auto) (1 - 5 %) 0.0 L Baso % (Auto) (0.0 - 1.1 %) 0.1 Neut # (Auto) (2.00 - 7.50 K/mm3) 7.28 Lymph # (Auto) (1.50 - 4.00 K/mm3) 0.71 L Kenedy # (Auto) (0.2 - 0.8 K/mm3) 0.49 Eos # (Auto) (0.04 - 0.4 K/mm3) 0.00 L Baso # (Auto) (0.02 - 0.10 K/mm3) 0.01 L Add Manual Diff (MANUAL DIFF) NO Nucleated RBC % (0 - 0 %) 0 Toxicology Vancomycin Peak (AUC) (20 - 60 mcg/mL) 29.2 Gunnar Miller M.D. at 1045 RPT #:[id number] END OF REPORT [id number] 06:51:00 [facility] ([facility]) Clinical Note REPORT#:[id number] REPORT STATUS: Signed REPORT INITIALIZATION DATE:12/24/23 TIME: 650 PATIENT: ELIGIO SEBASTIAN UNIT #: [id number] ROOM/BED: [address] : [birth year] AGE: 88 SEX: M ATTEND: Reymundo Sage II, MD ADM AUTHOR: Genevieve Bey MD REPT SERVICE DT/TIME: 12/24/23 0651 * ALL edits or amendments must be made on the electronic/computer document * Clinical Note Note: 88M s/p right knee antibiotic spacer on 12/22/23 S: NAEON. Pain controlled. Toleraing PO. O: AFVSS GEN: NAD, sitting up in bed MSK: right knee: dressing C/D/I, KI in place, able to DF/PF ankle, SILT SP/DP/T, foot warm and well perfused Labs: H/H: Cultures: blood culture bottle positive for staph species A/P: 88M s/p right knee antibiotic spacer on 12/22/23 - continue current pain regimen - follow up culture results - IM consult for medical management - Appreciate Dr. Parsons's assitance with antibiotic rec's - PT/OT for mobilization - DVT ppx: ASA 81mg BID - Dispo: pending culture results and definitive antibiotics at 0756 RPT #:[id number] END OF REPORT [id number] 15:52:00 [facility] ([facility]) Infectious Dis. Progress Note REPORT#:[id number] REPORT STATUS: Signed REPORT INITIALIZATION DATE:12/23/23 TIME: 1551 PATIENT: ELIGIO SEBASTIAN UNIT #: [id number] ROOM/BED: Y.[address] : [birth year] AGE: 88 SEX: M ATTEND: Reymundo Sage II, MD ADM AUTHOR: Barby Parsons MD REPT SERVICE DT/TIME: 12/23/23 1552 * ALL edits or amendments must be made on the electronic/computer document * Subjective Chief complaint: right TKA infection HPI: Pt is a 88 y/o male 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 this was complicated with infection and pt had surgical intervention but cannot tell me what was done. I do have cxs from 11/07/19 with Pseudomonas, Citrobacter and Enterobacter and another cx from 01/08/20 with CoNS that is Ox and TCN resistant and Bactrim and Clinda sens.Has no recollection of receiving IV abx. Several weeks ago he presented to [facility] with an abscess on the right tibia. It was drained and pt placed on IV abx followed by po Doxy and Augmentin . It has since resolved. Was seen by Dr Sage and aspiration done last week c/w infection although cxs have been negative. Comments: s/p explant with abx spacer Review of Systems Constitutional: Denies: chills, fever. Objective General VS/I O: Vital Signs Date Temp Pulse Resp B/P B/P Mean Pulse Ox FiO2 12/21-12/22 35.4-36.8 54-97 15-20 97-139/52-73 68-92.7 97-100 Last Documented: Result Date Time Pulse Ox 100 12/22 1119 B/P 108/52 12/22 1119 B/P Mean 70.7 12/22 1119 O2 Delivery Room air 12/22 1119 Temp 36.3 12/22 1119 Pulse 65 12/22 1119 Resp 16 12/22 1119 O2 Flow Rate 3 12/21 194 Vital Signs: Date Time Temp Pulse Resp B/P B/P Pulse O2 O2 Flow FiO2 Mean Ox Delivery Rate 12/22 1119 36.3 65 16 108/52 70.7 100 Room air 12/22 0724 36.2 78 16 127/64 84.8 99 Room air 12/22 0622 36.8 73 16 102/56 71 100 12/22 0007 35.4 66 18 97/54 68 98 12/21 2009 35.8 54 18 122/68 86 97 12/21 1941 Nasal 3 cannula 12/21 1842 36.0 97 18 133/73 92.7 98 Nasal cannula 12/21 1830 59 20 139/63 100 Nasal 3 cannula 12/21 1816 Nasal 3 cannula 12/21 1815 61 15 139/65 100 Nasal 3 cannula 12/21 1800 61 20 130/69 100 Nasal 3 cannula 12/21 1749 Simple 8 mask 12/21 174 36.8 62 19 129/60 100 Simple 8 mask 24 hour I O ending at 0700: 12/22 0712/21 1900 Intake Total 770.00 195.00 Output Total 800 Balance -30.00 195.00 Intake, IV 290.00 75.00 Intake, Oral 480 120 Number 0 Incontinent Voids Number Voids 2 Output, Urine 800 PATIENT WEIGHT: Weight (lb): 210 Weight (oz): 7.08 Weight (kg): 95.254 Medications: Active Meds + DC'd Last 24 Hrs Vancomycin HCl (VANCOMYCIN AUC2) 1 EACH ONCE@1500 MISC Ketorolac Tromethamine (TORADOL) 15 MG Q6H PRN PRN IV Vancomycin HCl (VANCOMYCIN AUC1) 1 EACH ONCE@1900 MISC Dexamethasone Sodium Phosphate 10 MG ONCE@1630 IV Vancomycin HCl (VANCOCIN) 1.5 GM Q24H IV Sodium Chloride (SODIUM CHLORIDE 0.9%) 250 ML Famotidine (PEPCID) 40 MG DAILY PO Lisinopril (PRINIVIL) 15 MG DAILY PO Aspirin (ASPIRIN) 81 MG BID@0600,1700 PO Ketorolac Tromethamine (TORADOL) 15 MG Q6HR IV Cefepime HCl (Cefepime HCl) 1 GM Q8H IV Sodium Chloride (SODIUM CHLORIDE 0.9%) 50 ML Docusate Sodium (COLACE) 100 MG BID PO Lactated Ringer's (LACTATED RINGERS) 1,000 ML .Q10H IV Miscellaneous Information (VANCOMYCIN PHARMACY TO DOSE) 1 EACH ASDIR IV (CKD) Cefepime HCl (Cefepime HCl) 1 GM .STK-MED ONE IV (DC) Sodium Chloride (SODIUM CHLORIDE 0.9%) 250 ML .STK-MED ONE IV (DC) Sodium Chloride (SODIUM CHLORIDE 0.9%) 50 ML .STK-MED ONE IV (DC) Vancomycin HCl (VANCOCIN) 1.5 GM .STK-MED ONE IV (DC) Dexamethasone Sodium Phosphate (DECADRON) 8 MG .STK-MED ONE IV (DC) Ephedrine Sulfate (ePHEDrine sulfate) 50 MG .STK-MED ONE IV (DC) Fentanyl Citrate (SUBLIMAZE) 100 MCG .STK-MED ONE IV (DC) Lactated Ringer's (LACTATED RINGERS) 2,000 ML .STK-MED ONE IV (DC) Lidocaine HCl (XYLOCAINE PF) 5 ML .STK-MED ONE IV (DC) Ondansetron HCl (ZOFRAN) 4 MG .STK-MED ONE IV (DC) Propofol (DIPRIVAN) 200 MG .STK-MED ONE IV (DC) Rocuronium [place] (Rocuronium [place] 10 mg/mL) 100 MG .STK-MED ONE IV (DC) Sugammadex Sodium (Bridion) 200 MG .STK-MED ONE IV (DC) Tranexamic Acid (CYKLOKAPRON) 2,000 MG .STK-MED ONE IV (DC) Methocarbamol (ROBAXIN) 500 MG Q6H PRN PRN PO Acetaminophen (TYLENOL) 650 MG Q4H PRN PRN PO Al Hydrox/Mg Hydrox/Simethicone (MAALOX PLUS) 30 ML Q6H PRN PRN PO Benzocaine/Menthol (CEPACOL SORE THROAT LOZENGE) 1 LOZENGE Q2H PRN PRN PO Bisacodyl (BISACODYL 10 MG SUPP) 10 MG ASDIR PRN RECTAL Bisacodyl (bisacodyL) 10 MG DAILY PRN PRN PO Diphenhydramine HCl (BENADRYL) 25 MG Q4H PRN PRN PO (CAN) Hydrocodone Bitart/Acetaminophen (NORCO 5/325 TABLET) 1 UDTAB Q4H PRN PRN PO Hydrocodone Bitart/Acetaminophen (NORCO 10/325 TABLET) 1 UDTAB Q4H PRN PRN PO Hydromorphone HCl (DILAUDID 1 mg/mL PF Vial) 0.5 MG Q6H PRN PRN IV Hydroxyzine (ATARAX) 25 MG Q4H PRN PRN PO Magnesium Hydroxide (MILK OF MAGNESIA) 30 ML BEDTIME PRN PRN PO Ondansetron HCl (ZOFRAN) 4 MG Q8H PRN PRN IV Tramadol HCl (ULTRAM) 50 MG Q6H PRN PRN PO Fentanyl Citrate (SUBLIMAZE) 25 MCG PACU Q5MIN PRN PRN IV (DC) Hydralazine HCl (hydrALAZINE HCL) 10 MG PACU Q10MIN PRN PRN IV (DC) Hydrocodone Bitart/Acetaminophen (NORCO 5/325 TABLET) 1 UDTAB PACU Q4H PRN PRN PO (DC) Hydrocodone Bitart/Acetaminophen (NORCO 10/325 TABLET) 1 UDTAB PACU Q4H PRN PRN PO (DC) Hydromorphone HCl (DILAUDID) 0.2 MG PACU Q5MIN PRN PRN IV (DC) Meperidine HCl (MEPERIDINE HCL) 12.5 MG PACU Q5MIN PRN PRN IV (DC) Methocarbamol (ROBAXIN) 500 MG PACU ONCE PRN PO (DC) Metoprolol Tartrate (LOPRESSOR) 2 MG PACU Q10MIN PRN PRN IV (DC) Ondansetron HCl (ZOFRAN) 4 MG PACU ONCE PRN PRN IV (DC) Acetaminophen (TYLENOL) 650 MG PREOP ONCE PO (DC) Cefazolin Sodium (KEFZOL) 2 GM ONCALL IV (DC) Celecoxib (CeleBREX) 200 MG PREOP PO (DC) Lactated Ringer's (LACTATED RINGERS) 1,000 ML PREOP IV FLUID IV (DC) Lidocaine HCl (XYLOCAINE) 2 ML PREOP SUBQ (DC) Methocarbamol (ROBAXIN) 500 MG PREOP ONCE PO (DC) Vancomycin HCl (VANCOMYCIN (FOR PYXIS)) 1 GM PREOP IV (DC) Sodium Chloride (SODIUM CHLORIDE 0.9%) 250 ML Antibiotic start date: Antibiotic: vanco/cef Physical Exam General appearance: alert, awake, oriented Wound/incision: Location: right knee Head/Eyes: normocephalic Cardiovascular: normal heart sounds, regular rate rhythm Respiratory: clear to auscultation Abdomen: non-tender, soft Neuro/TELEVISION JOURNALIST: alert, oriented X 3, normal speech Results Findings/Data: Microbiology: 12/21 1556 KNEE: Acid Fast Bacilli Smear - CAN Cancelled: WRONG TEST ORDERED 12/21 1556 KNEE: Acid Fast Bacilli Culture - CAN Cancelled: WRONG TEST ORDERED 12/21 1556 KNEE: Fungal Culture - CAN Cancelled: WRONG TEST ORDERED 12/21 1540 BF OTHER: Blood Culture - RECD 12/21 1540 BF OTHER: Blood Culture - RECD 12/21 1538 KNEE: Acid Fast Bacilli Smear - ORD 12/21 1538 KNEE: Acid Fast Bacilli Culture - ORD 12/21 1538 KNEE: Fungal Culture - ORD 12/21 1538 KNEE: Wound Culture - ORD 12/21 1538 KNEE: Anaerobic Culture - ORD 12/21 1538 KNEE: Gram Stain - ORD 12/21 1535 KNEE: Acid Fast Bacilli Smear - RECD 12/21 1535 KNEE: Acid Fast Bacilli Culture - RECD 12/21 1535 KNEE: Fungal Culture - RECD 12/21 1535 KNEE: Wound Culture - RES 12/21 1535 KNEE: Anaerobic Culture - RES 12/21 1535 KNEE: Gram Stain - RES 12/21 1530 KNEE: Acid Fast Bacilli Smear - RECD 12/21 1530 KNEE: Acid Fast Bacilli Culture - RECD 12/21 1530 KNEE: Fungal Culture - RECD 12/21 1530 KNEE: Wound Culture - RES 12/21 1530 KNEE: Anaerobic Culture - RES 12/21 1530 KNEE: Gram Stain - RES 12/21 1525 KNEE: Acid Fast Bacilli Smear - RECD 12/21 1525 KNEE: Acid Fast Bacilli Culture - RECD 12/21 1525 KNEE: Fungal Culture - RECD 12/21 1525 KNEE: Wound Culture - RES 12/21 1525 KNEE: Anaerobic Culture - RES 12/21 1525 KNEE: Gram Stain - RES 12/21 1520 KNEE: Acid Fast Bacilli Smear - RECD 12/21 1520 KNEE: Acid Fast Bacilli Culture - RECD 12/21 1520 KNEE: Fungal Culture - RECD 12/21 1520 KNEE: Wound Culture - RES 12/21 1520 KNEE: Anaerobic Culture - RES 12/21 1520 KNEE: Gram Stain - RES Laboratory Tests 12/22 0430 Chemistry Sodium (136 - 145 mmol/L) 139 Potassium (3.5 - 5.1 mmol/L) 5.0 Chloride (98 - 107 mmol/L) 103.0 Carbon Dioxide (21 - 32 mmol/L) 29.8 BUN (7 - 18 mg/dL) 28 H Creatinine (0.70 - 1.30 mg/dL) 1.14 Glomerular Filtr Rate (>60) 62.2 Glucose (74 - 106 mg/dL) 136 H Calcium (8.5 - 10.1 mg/dL) 7.7 L Laboratory Tests 12/22 0430 Hematology Hgb (12 - 16 g/dL) 7.7 L Hct (37 - 47 %) 24.7 L Results: labs reviewed, vital signs reviewed, current med profile rev'd Treatment Prophylaxis Treatment Prophylaxis Lines: peripheral Anti-infectives: cefepime, vancomycin Diagnosis, Assessment Plan Problem List/A P: 1. 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 Pt now presents with new abscess on tibia a few weeks ago and aspiration from knee c/w infection although cxs negativeWill likely have explant today. plan empiric Vanco and Cefepime pending cx data. Pt and know he will be on IV abx for [address] PICC today. at 1557 RPT #:[id number] END OF REPORT [id number] 09:34:00 [facility] ([facility]) Clinical Note REPORT#:[id number] REPORT STATUS: Signed REPORT INITIALIZATION DATE:12/23/23 TIME: 933 PATIENT: ELIGIO SEBASTIAN UNIT #: [id number] [facility] [birth year][facility][birth year][facility][birth year] AGE: 88 SEX: M ATTEND: Reymundo Sage II, MD ADM AUTHOR: Gunnar Ott MD REPT SERVICE DT/TIME: 12/23/23 0934 * ALL edits or amendments must be made on the electronic/computer document * Clinical Note Note: [facility] Gunnar Miller M.D. (cell text [phone]) Assessment/Plan 1.) Anemia of acute blood loss- .Hgb 7.7, asymptomatic. Will recheck tomorrow. 2.) S/p Revision{Explant] Right TKA abx spacer- .acute multi-modal pain control and followup. Anticoagulation as per Dr. Sage. Abx as per Dr. Parsons. 3.) Hypertension- .follow BP and hold Rxs if SBP<120. 4.) OsteoArthritis Hx of bladder cancer- .continue on Rx. Prior Events/Overnight: Uneventful. Chief Complaint: No significant complaints. Objective Vital Signs: Date Time Temp Pulse Resp B/P B/P Pulse O2 O2 Flow FiO2 Mean Ox Delivery Rate 12/23 723 97.2 78 16 127/64 84.8 99 Room air 12/22 06 98.2 73 16 102/56 71 100 12/22 0007 95.7 66 18 97/54 68 98 12/21 2008 96.4 54 18 122/68 86 97 12/21 1941 Nasal 3 cannula 12/21 1842 96.8 97 18 133/73 92.7 98 Nasal cannula 12/21 1830 59 20 139/63 100 Nasal 3 cannula 12/21 1816 Nasal 3 cannula 12/21 1815 61 15 139/65 100 Nasal 3 cannula 12/21 1800 61 20 130/69 100 Nasal 3 cannula 12/21 1749 Simple 8 mask 12/21 1745 98.2 62 19 129/60 100 Simple 8 mask 12/21 1105 97.4 77 18 118/66 98 Room air Gen: Alert, oriented, in mild discomfort Neck: No Masses, No Thyromegaly- CV: Regular Rate Rhythm / Edema- no significant Resp: Clear To Ascultation / Normal Respiratory Effort ABD: NonTender / NonDistended MS/Skin: No sign of compartment syndrome / +ankle DF/PF Other: kne immobilizer and bulky magdaleno wrap Labs/X-ray: Laboratory Tests: 12/22 0430 Chemistry Sodium (136 - 145 mmol/L) 139 Potassium (3.5 - 5.1 mmol/L) 5.0 Chloride (98 - 107 mmol/L) 103.0 Carbon Dioxide (21 - 32 mmol/L) 29.8 BUN (7 - 18 mg/dL) 28 H Creatinine (0.70 - 1.30 mg/dL) 1.14 Glomerular Filtr Rate (>60) 62.2 Glucose (74 - 106 mg/dL) 136 H Calcium (8.5 - 10.1 mg/dL) 7.7 L Hematology Hgb (12 - 16 g/dL) 7.7 L Hct (37 - 47 %) 24.7 L Microbiology: Date/Time Procedure - Status Source Growth 12/21 1556 Acid Fast Bacilli Smear - CAN KNEE Cancelled: WRONG TEST ORDERED 12/21 1556 Acid Fast Bacilli Culture - CAN KNEE Cancelled: WRONG TEST ORDERED 12/21 1556 Fungal Culture - CAN KNEE Cancelled: WRONG TEST ORDERED 12/21 1540 Blood Culture - RECD BF OTHER 12/21 1540 Blood Culture - RECD BF OTHER 12/21 1538 Acid Fast Bacilli Smear - ORD KNEE 12/21 1538 Acid Fast Bacilli Culture - ORD KNEE 12/21 1538 Fungal Culture - ORD KNEE 12/21 1538 Wound Culture - ORD KNEE 12/21 1538 Anaerobic Culture - ORD KNEE 12/21 1538 Gram Stain - ORD KNEE 12/21 1535 Acid Fast Bacilli Smear - RECD KNEE 12/21 1535 Acid Fast Bacilli Culture - RECD KNEE 12/21 1535 Fungal Culture - RECD KNEE 12/21 1535 Wound Culture - RES KNEE 12/21 1535 Anaerobic Culture - RES KNEE 12/21 1535 Gram Stain - RES KNEE 12/21 1530 Acid Fast Bacilli Smear - RECD KNEE 12/21 1530 Acid Fast Bacilli Culture - RECD KNEE 12/21 1530 Fungal Culture - RECD KNEE 12/21 1530 Wound Culture - RES KNEE 12/21 1530 Anaerobic Culture - RES KNEE 12/21 1530 Gram Stain - RES KNEE 12/21 1525 Acid Fast Bacilli Smear - RECD KNEE 12/21 1525 Acid Fast Bacilli Culture - RECD KNEE 12/21 1525 Fungal Culture - RECD KNEE 12/21 1525 Wound Culture - RES KNEE 12/21 1525 Anaerobic Culture - RES KNEE 12/21 1525 Gram Stain - RES KNEE 12/21 1520 Acid Fast Bacilli Smear - RECD KNEE 12/21 1520 Acid Fast Bacilli Culture - RECD KNEE 12/21 1520 Fungal Culture - RECD KNEE 12/21 1520 Wound Culture - RES KNEE 12/21 1520 Anaerobic Culture - RES KNEE 12/21 1520 Gram Stain - RES KNEE Gunnar Miller M.D. at 1044 [facility] #:[id number] END OF REPORT [id number] 08:00:00 [facility] ([facility]) Clinical Note REPORT#:[id number] REPORT STATUS: Signed REPORT INITIALIZATION DATE:12/23/23 TIME: 0800 PATIENT: ELIGIO SEBASTIAN UNIT #: [id number] ROOM/BED: [address] : [birth year] AGE: 88 SEX: M ATTEND: Reymundo Sage II, MD ADM AUTHOR: Gunnar Ott MD REPT SERVICE DT/TIME: 12/23/23 0800 * ALL edits or amendments must be made on the electronic/computer document * Clinical Note Note: [facility] Gunnar Miller MD (cell text [phone]) Internal Medicine Consult at request of : Dr. Reymundo Sage Late Note ENTRY - Patient seen at approximately 6:30pm 12/22/23 Chief Complaint: right knee pain HPI: 88 yo F is now s/p Right Total Knee Arthroplasty Revision by Dr. Sage, Mr. Sebastian has h/o right knee arthroplasty several years ago which was complicated with infection. He underwent explant and antibiotic spacer placement , He relates months of progressive right knee pain (recently severe), worse with activity. He had a recent aspiration done 2 weeks ago which was consistent with infection. Comorbidities: see below. PmHx: . Osteoarthritis, bladder cancer, hypertension ALLERGY: Allergies: No Known Allergies (Coded, 12/20/23) Home Medications: Home Medications: LISINOPRIL (ZESTRIL) 15 MG PO DAILY ACETAMINOPHEN (TYLENOL) 650 MG PO Q6H PRN PAIN SgHx: . bilateral knee arthroplasty SHx: Tob FHx: .No significant hx of DVT/PE. Alcohol: occasional Drugs: none Lives: with others . . Vitals: Vital Signs: Date Time Temp Pulse Resp B/P B/P Pulse O2 O2 Flow FiO2 Mean Ox Delivery Rate 12/216 Nasal 3 cannula 12/21 1815 61 15 139/65 100 Nasal 3 cannula 12/21 1800 61 20 130/69 100 Nasal 3 cannula 12/21 1749 Simple 8 mask 07/25 1745 98.2 62 19 129/60 100 Simple 8 mask 12/21 1105 97.4 77 18 118/66 98 Room air Gen: Alert, in mild discomfort. EYE: Nl lids conjunctiva. ENT: Nl ears Nose, nl lips,. Neck: Supple, nl thyroid, No masses. CV: Regular Rate Rhythm, no heave or significant murmur. Edema- none RESP: Clear to Auscultation, normal Respiratory effort. ABD: Soft, NonDistended,. LYM: No significant cervical Lymphadenopathy. MS: No sign of compartment syndrome, knee is wrapped, drain in place. NEURO: Nonfocal, grossly normal sensation of LE, +Ankle DF/PF . . Preop Labs(12/20/23): CBC:. Hgb 9.6, Plt 461 CHEM: Na 139, K 4.5 , Cr 0.98 (eGFR74.6 %), . Ekg: Sinus bradycardia with first degree AV block . (medium to high risk of complications or morbidity) (major surgery) (IV sedative, meds) . Assessment Plan 1.) Anemia of Acute Blood Loss- .will recheck tomorrow. 2.) S/p Revision Right TKA- .acute multi-modal pain control and followup. Anticoagulation as per Dr. Sage. 3.) Hypertension- .follow BP and hold Rxs if SBP<120. 4.) OsteoArthritis Hx of bladder cancer- .continue on Rx. . Gunnar Miller M.D. Thanks! . . . . . G8417 BMI documented as above normal parameters and a f/u plan is documented G9903 - Patient screened for tobacco use AND identified as a tobacco non-user 1123F - ACP discussion - default code status while at [facility]. 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 PROCEDURES: 1. Revision of right total knee arthroplasty, both components, with high dose antibiotic cement. 2. Excision of hypertrophic keloid incision with complex wound closure measuring 30 cm x 1 cm, right knee. 3. Irrigation and debridement with arthrotomy, right knee. 4. Fabrication and placement of intramedullary tibial and femoral antibiotic rods. SURGEON: Reymundo Sage II, M.D. PSYCHOLOGIST CHIEF: LATOSHA Reese. ANESTHESIA: General. INTRAVENOUS FLUIDS: See anesthesia note. ESTIMATED BLOOD LOSS: 50 mL. COMPLICATIONS: None. FINDINGS: Gross purulence and infection. SPECIMENS: Multiple tissue and fluid specimens sent to microbiology. IMPLANTS: 1. DePuy Sigma size 4 right posterior stabilized femoral component. 2. Size 4 x 25 mm posterior stabilized rotating platform implant. 3. Two threaded K-wires. 4. Three bags of high viscosity cement with 3 g of vancomycin, 2.4 g of tobramycin, and 200 mg of voriconazole per bag of cement. INDICATIONS FOR THE PROCEDURE: 88-year-old male with a history of a right total knee arthroplasty done many years ago, who had a subsequent total knee infection PATIENT NAME: ELIGIO SEBASTIAN and underwent a total knee antibiotic spacer by me. He did well over the last several years. He presented recently with an abscess in his mid tibia at an outside hospital where a drain was placed. He subsequently developed increasing swelling around his knee. Aspiration demonstrated infection with 90,000 white blood cells and 95% neutrophils. I recommended urgent irrigation, debridement, and revision of the total knee with high dose antibiotic cement. He wished to proceed with surgery and understood all surgery carries risks including but not limited to pain, bleeding, infection, scarring; damage to nerves, arteries, veins, muscles; loss of function, failure of procedure, need of repeat procedure, heart attack, blood clot, stroke, and . He understood also that this was a staged operation and that this was a temporary knee, and he may have to return for a repeat total knee replacement when he is fully cured of the infection and no sooner than 3 months after approval of infectious disease and he has completed a long course of antibiotics. All questions answered. PROCEDURE IN DETAIL: He was brought back to the operating room, transferred to the operating room table, succumbed to general anesthesia. A timeout was confirmed indicating the correct procedure, patient, MRN, and extremity. Antibiotics were held until cultures were obtained. He received 1 g of IV TXA. A well-padded proximal thigh tourniquet was placed. The leg was then cleaned with chlorhexidine scrub brush followed by a scrub alcohol followed by ChloraPrep. Sterile drapes were then placed. The leg was then exsanguinated with an Esmarch, and tourniquet raised to 300 mmHg. Next, a #10 blade was used to make sharp excision of the hypertrophic keloid scar measuring 30 cm to allow better wound healing. Next, full thickness skin flaps were created. A medial parapatellar arthrotomy was performed. There was gross infection and purulence upon opening the arthrotomy, which was collected and sent in blood culture tubes. Medial periosteal elevation was then performed followed by flexing the knee. I then brought the knee back out to full extension and excised the medial and lateral gutters and suprapatellar pouch. Multiple soft tissue cultures were sent. I then flexed the knee again, and he had a small microsagittal saw followed by flexible osteotomes, removed the femur and the tibia with minimal bone loss. Saw was then made to make freshen up cuts at the distal femur and proximal tibia down to healthy bleeding bone. Posterior capsule was also removed. I then used reverse curettes for the tibial and femoral canals. I then began reaming up to a size 15 reamer. After this, we brought the knee out to full extension. After excising all the infected tissue with sharp dissection using knife and Bovie electrocautery, I then began irrigating with 3 L of saline followed by 1 unit of Bactisure, followed by another 3 L of saline, followed by a concentrated Betadine soak while we changed gloves, gowns, drapes, and used instruments. We then used an additional 3 L to irrigate out the concentrated Betadine. We then trialed the components with a size 4, cut the box for the femur, and assembled on the back table the antibiotic spacer rods. On the back table, we then constructed antibiotic rods using cement molds using a K-wire each. We used the aforementioned antibiotics. We used methylene blue also. After these had fully cured, they were taken out of the molds and inserted to the bottom of the tibial polyethylene component. I then was happy with trialing the components. The rods were placed in the femur and the tibia after we placed cement on the backsides of the femur and the tibial components. Excess cement was removed. The knee was brought into full extension. The cement was allowed to cure. Final irrigation was performed followed by releasing the tourniquet and obtaining excellent hemostasis. We then closed the knee with 30 degrees of flexion using #1 PDS followed by running #2 Quill, 2-0 Monocryl for subcutaneous tissues, 3-0 running subcuticular tissues, and Prineo Dermabond tape for the PATIENT NAME: ELIGIO SEBASTIAN skin followed by Webril and Magdaleno wrap and a knee immobilizer. He had 2+ pulses at the end of the case. All counts were correct. INDICATIONS FOR PSYCHOLOGIST CHIEF: LATOSHA Reese was instrumental for the case. Without her assistance, I could not have performed on the case as this was a complex case requiring me to use both of my hands. She helped transfer the patient, drape the patient, prep the patient, and help hold the retractors as mentioned. She also helped close the large extensile wound to reduce the operative time known to increase infection risk, and therefore, help optimize this patient's help. I am not part of any fellowship or residency program; therefore, required the assistance of a skilled person such as LATOSHA Reese. Therefore, her assistance is indicated. Dictated By: Reymundo Sage II, MD Date Dictated: 12/23/2023 07:28:28 Date Transcribed: 12/23/2023 09:22:56 HB/RAG Receipt ID: [id number] Authenticated by Reymundo Sage MD On 12/26/2023 02:31:01 PM at 0231 PATIENT NAME: ELIGIO SEBASTIAN 07:00:00 [facility] ([facility]) Clinical Note REPORT#:[id number] REPORT STATUS: Signed REPORT INITIALIZATION DATE:12/23/23 TIME: 699 PATIENT: ELIGIO SEBASTIAN UNIT #: [id number] ROOM/BED: [address] : [birth year] AGE: 88 SEX: M ATTEND: Reymundo Sage II, MD ADM AUTHOR: Genevieve Bey MD REPT SERVICE DT/TIME: 12/23/23699 * ALL edits or amendments must be made on the electronic/computer document * Clinical Note Note: 88M s/p right knee antibiotic spacer on 12/22/23 S: NAEON. Pain controlled. Toleraing PO. O: AFVSS GEN: NAD, sitting up in bed MSK: right knee: dressing C/D/I, KI in place, able to DF/PF ankle, foot warm and well perfused Labs: H/H: 12/20 A/P: 88M s/p right knee antibiotic spacer on 12/22/23 - continue current pain regimen - follow up culture results - IM consult for medical management - Appreciate Dr. Parsons's assitance with antibiotic rec's - PT/OT for mobilization - DVT ppx: ASA 81mg BID - Dispo: pending culture results and definitive antibiotics at 0849 RPT #:[id number] END OF REPORT [id number] 20:00:00 [facility] ([facility]) Pharmacy Prog.Note-Vancomycin REPORT#:[id number] REPORT STATUS: Signed REPORT INITIALIZATION DATE:12/22/23 TIME: 1999 PATIENT: ELIGIO SEBASTIAN UNIT #: [id number] ROOM/BED: [facility] : [birth year] AGE: 88 SEX: M ATTEND: Reymundo Sage II, MD ADM AUTHOR: Raheel Roblero [facility] REPT SERVICE DT/TIME: 12/22/231999 * ALL edits or amendments must be made on the electronic/computer document * Vancomycin Vancomycin Medication Therapy Goal: AUC 400-600 mg*hr/L Indication for treatment: BONE AND JOINT INFECTION Site of infection: suspected, known Current therapy: VANCOMYCIN 1.5GM IV Q24HR X 42 DAYS CEFEPIME 1GM IV Q8HR X 42 DAYS Day of therapy: DAY 1 OF Weight: Actual weight (kg): 95.46 [place] body weight (kg): 70.7 Dosing weight (kg): 80.6 VS and I/O: Vital Signs Date Temp Pulse Resp B/P B/P Mean Pulse Ox FiO2 12/21 36.0-36.8 59-97 15-20 118-139/60-73 92.7 98-100 72 hours ending at 12/21 1900 12/20 19012/19 07 1900 Intake Total Output Total Balance Patient 95.455 kg Weight Weight Stated/Rep orted Measuremen t Method 72 Hour I O Total 12/21 07 Intake Total Output Total Balance Labs: Laboratory Test : 12/19 1215 Chemistry BUN (7 - 18 mg/dL) 17 Creatinine (0.70 - 1.30 mg/dL) 0.98 Hematology WBC (5.5 - 11.0 K/mm3) 6.2 Microbiology: 12/21 1556 KNEE: Acid Fast Bacilli Smear - CAN Cancelled: WRONG TEST ORDERED 12/21 1556 KNEE: Acid Fast Bacilli Culture - CAN Cancelled: WRONG TEST ORDERED 12/21 1556 KNEE: Fungal Culture - CAN Cancelled: WRONG TEST ORDERED 12/21 1540 BF OTHER: Blood Culture - RECD 12/21 1540 BF OTHER: Blood Culture - RECD 12/21 1538 KNEE: Acid Fast Bacilli Smear - ORD 12/21 1538 KNEE: Acid Fast Bacilli Culture - ORD 12/21 1538 KNEE: Fungal Culture - ORD 12/21 1538 KNEE: Wound Culture - ORD 12/21 1538 KNEE: Anaerobic Culture - ORD 12/21 1538 KNEE: Gram Stain - ORD 12/21 1535 KNEE: Acid Fast Bacilli Smear - RECD 12/21 1535 KNEE: Acid Fast Bacilli Culture - RECD 12/21 1535 KNEE: Fungal Culture - RECD 12/21 1535 KNEE: Wound Culture - RECD 12/21 1535 KNEE: Anaerobic Culture - RECD 12/21 1535 KNEE: Gram Stain - RECD 12/21 1530 KNEE: Acid Fast Bacilli Smear - RECD 12/21 1530 KNEE: Acid Fast Bacilli Culture - RECD 12/21 1530 KNEE: Fungal Culture - RECD 12/21 1530 KNEE: Wound Culture - RECD 12/21 1530 KNEE: Anaerobic Culture - RECD 12/21 1530 KNEE: Gram Stain - RECD 12/21 1525 KNEE: Acid Fast Bacilli Smear - RECD 12/21 1525 KNEE: Acid Fast Bacilli Culture - RECD 12/21 1525 KNEE: Fungal Culture - RECD 12/21 1525 KNEE: Wound Culture - RECD 12/21 1525 KNEE: Anaerobic Culture - RECD 12/21 1525 KNEE: Gram Stain - RECD 12/21 1520 KNEE: Acid Fast Bacilli Smear - RECD 12/21 1520 KNEE: Acid Fast Bacilli Culture - RECD 12/21 1520 KNEE: Fungal Culture - RECD 12/21 1520 KNEE: Wound Culture - RECD 12/21 1520 KNEE: Anaerobic Culture - RECD 12/21 1520 KNEE: Gram Stain - RECD 12/19 1215 NASAL: MSSA Surveillance Screen (PCR) - COMP 12/19 1214 NASAL: MRSA DNA Surveillance Screen - COMP Drug admin history: Lab Lab Level SCr Info Global Logistics Analyst Med Dose Interaction/Dialysis Date/Time Date/Time Notes: Treatment plan: consult, initiation of therapy Regimen: DX: BONE AND JOINT INFECTION, ADjBW: 80.6KG, SCr: 0.98, INITIATE VANCOMYCIN 1.5GM IV Q24HR X 42 DAYS, FIRST DOSE GIVEN 12/22/23@1600 IN OR, AUC1 (PEAK) SCHEDULED FOR 12/23/23@1900 AND AUC2 (TROUGH) SCHEDULED FOR 12/24/23@1500 Initiate Regimen: Yes at 2002 RPT #:[id number] END OF REPORT [id number] 17:41:00 [facility] ([facility]) Brief Op Note REPORT#:[id number] REPORT STATUS: Signed REPORT INITIALIZATION DATE:12/22/23 TIME: 1740 PATIENT: ELIGIO SEBASTIAN UNIT #: [id number] ROOM/BED: 998-14 : [birth year] AGE: 88 SEX: M ATTEND: Reymundo Sage II, MD ADM AUTHOR: Reymundo Sage II, MD REPT SERVICE DT/TIME: 12/22/23 1741 * ALL edits or amendments must be made on the electronic/computer document * Op/Inv Proc Note - Brief Pre-procedure diagnosis: Infected right total knee replacement Post-procedure diagnosis: same as pre procedure dx Procedures performed: Revision of right total knee replacement antibiotic spacer Primary Surgeon: Reymundo Sage MD Reel And Rewinder Operator(s): Maru REINA Findings: Infected right total knee replacement Complications: none Estimated blood loss in ml's: 100 Specimens removed/altered: cultures at 1742 RPT #:[id number] END OF REPORT [id number] 13:53:00 [facility] Infect Disease Consult Note REPORT#:[id number] REPORT STATUS: Signed REPORT INITIALIZATION DATE:12/22/23 TIME: 1352 PATIENT: ELIGIO SEBASTIAN UNIT #: [id number] ROOM/BED: [address] : [birth year] AGE: 88 SEX: M ATTEND: Reymundo Sage II, MD ADM AUTHOR: Barby Parsons MD REPT SERVICE DT/TIME: 12/22/23 1353 * ALL edits or amendments must be made on the electronic/computer document * History of Present Illness Requesting Clinician: Dr Sage Reason for consult: Infected right TKA HPI: Pt is a 88 y/o male 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 this was complicated with infection and pt had surgical intervention but cannot tell me what was done. I do have cxs from 11/07/19 with Pseudomonas, Citrobacter and Enterobacter and another cx from 01/08/20 with CoNS that is Ox and TCN resistant and Bactrim and Clinda sens.Has no recollection of receiving IV abx. Several weeks ago he presented to [facility] with an abscess on the right tibia. It was drained and pt placed on IV abx followed by po Doxy and Augmentin . It has since resolved. Was seen by Dr Sage and aspiration done last week c/w infection although cxs have been negative. History - Adult longitudinal Smoking status for patients 13 years old or older: Never Smoker Allergies: Coded Allergies: No Known Allergies (12/20/23) Review of Systems Constitutional: Denies: chills, fever. Objective General VS/I O: Vital Signs Date Temp Pulse Resp B/P B/P Mean Pulse Ox FiO2 12/21 36.3 77 18 118/66 98 Last Documented: Result Date Time Pulse Ox 98 12/21 1105 B/P 118/66 12/21 1105 O2 Delivery Room air 12/21 1105 Temp 36.3 12/21 1105 Pulse 77 12/21 1105 Resp 18 12/21 1105 B/P Mean 84 12/19 1141 Vital Signs: Date Time Temp Pulse Resp B/P B/P Pulse O2 O2 Flow FiO2 Mean Ox Delivery Rate 12/21 1105 36.3 77 18 118/ 98 Room air PATIENT WEIGHT: Weight (lb): 210 Weight (oz): 7.08 Weight (kg): 95.455 Physical Exam General appearance: alert, awake, oriented Wound/incision: Location: right knee Head/Eyes: normocephalic Cardiovascular: normal heart sounds, regular rate rhythm Respiratory: clear to auscultation Abdomen: non-tender, soft Neuro/TELEVISION JOURNALIST: alert, oriented X 3, normal speech Results Findings/Data: Microbiology: 12/19 1214 NASAL: MSSA Surveillance Screen (PCR) - COMP 12/19 1214 NASAL: MRSA DNA Surveillance Screen - COMP Results: labs reviewed, vital signs reviewed, current med profile rev'd Treatment Prophylaxis Treatment Prophylaxis Lines: peripheral Anti-infectives: cefepime, vancomycin Diagnosis, Assessment Plan Problem List/A P: 1. RIGHT TKA INFECTION Free Text DxA P Notes Free text DxA P notes: Pt with right TKA several years ago complicated with infection. Review of cxs show polymicrobial infection with CoNS and 3 gram negatives. Pt now presents with new abscess on tibia a few weeks ago and aspiration from knee c/w infection although cxs negativeWill likely have explant today. plan empiric Vanco and Cefepime pending cx data. Pt and know he will be on IV abx for [address] PICC in am. at 1417 RPT #:[id number] END OF REPORT [id number] 12:37:[id number] [facility] [address], [place] [address] PATIENT NAME: ELIGIO SEBASTIAN ADMIT DATE: 12/22/23 ACCOUNT NO: [id number] ROOM NO: Y.512 AGE: 88 REPORT TYPE: ELECTROCARDIOGRAM SEX: M ADMITTING PHYSICIAN:Reymundo Sage II, MD ATTENDING PHYSICIAN:eRymundo Sage II, MD Order: [id number] Test Reason : HTN Test Date/Time Stamp: TueDec 20 2023 12:37:15 Blood Pressure : / mmHG Vent. Rate : 056 BPM Atrial Rate : 056 BPM P-R Int : 352 ms QRS Dur : 094 ms QT Int : 410 ms P-R-T Axes : 064 042 036 degrees QTc Int : 395 ms Sinus bradycardia with 1st degree AV block Otherwise normal ECG No previous ECGs available Confirmed by HELLEN CABALLERO MD ([id number]) on 12/25/2023 8:41:42 PM Referred By: Reymundo Sage Confirmed by:HELLEN CABALLERO MD PATIENT NAME: ELIGIO SEBASTIAN 14:08:58 Status of order for walker. [facility]2024-06-16 22:14:15* Consultation (Urgent) - Authorized Specialty Diagnoses / Procedures Referred By Mikki young Referred To Contact Radiology Diagnoses Leg abscess Procedures [place] OFFICE/OUTPATIENT [facility] 60-74 MINUTES Deidra Kilpatrick MD [facility] [place] [address] Bairon Parks MD [address] [place] [id number] Referral ID Status Reason Start Date Expiration Date Visits Requested Visits Authorized [id number] Authorized Specialty Services Required 11/09/2023 05/07/2024 1 1 * Consultation (Urgent) - Authorized Specialty Diagnoses / Procedures Referred By Contac t Referred To Contact Infectious Diseases Diagnoses Leg abscess Procedures [place] OFFICE/OUTPATIENT [facility] 60-74 MINUTES Deidra Kilpatrick MD [address] [place] [address] [place] [address] [facility] [address] [place] [address] Referral ID Status Reason Start Date Expiration Date Visits Requested Visits Authorized [id number] Authorized Specialty Services Required 11/09/2023 05/07/2024 1 1 [id number]:14[id number] 22:14:15* Deidra Kilpatrick MD - 11/09/2023 3:00 PM CDT Subjective Patient ID: Eligio Sebastian is a 88 y.o. male who presents for hospital followup. Admitted on 10/26-11/02/2023 at [facility] for R leg abscess. Treated with IV abx. Osteo and joint infection ruled out while inpt. Discharged on Doxy/Augmentin and having no issues with taking medication. Denies any leg pain/discomfort, not needing [place] and/or OTC medications. Denies any issues with wound/drain care. Only draining clear fluid. Has home health therapy, and has support of daughter/. Planning to do PT/OT pending course with drain management. Needs new walker, requesting orders be sent to supply company in [place] vs. [facility]. Denies any falls, but does have mild weakness compared to previous baseline. Review of Systems All other systems reviewed and are negative. Objective Blood pressure 106/63, pulse 65, temperature 36.5 ?C (97.7 ?F), weight 91.6 kg (202 lb). Physical Exam Constitutional: Appearance: Normal appearance. HENT: Head: Normocephalic and atraumatic. Eyes: Extraocular Movements: Extraocular movements intact. Pupils: Pupils are equal, round, and reactive to light. Cardiovascular: Rate and Rhythm: Normal rate and regular rhythm. Pulmonary: Effort: Pulmonary effort is normal. Musculoskeletal: Comments: RLE w/ NASRIN drain to anterior leg, small amount of serous discharge bulb Skin: General: Skin is warm and dry. Capillary Refill: Capillary refill takes less than 2 seconds. Neurological: General: No focal deficit present. Mental Status: He is alert. Psychiatric: Mood and Affect: Mood normal. Assessment & Plan Leg abscess -Pt with drain in place, has minimal serous output and erythema has now resolved and swelling improved. Continue course of Doxy/Augmentin as prescribed. Has home health established as below for further care, pt reports that they assess site as well. Denies need for any wound care supplies. -Has hx of TKA w/ revisions 07/01 infection. Has appt with Orthopedic Surgery this Tuesday. Pt reports that daughter is in process of scheduling his ID and IR appts. Reports that he's heard from everyone except radiologist, tried to call in office today but no answer/unable to leave voice mail. Told pt to call me if unable to schedule ID and IR appts for abx and I presume drain management. Orders: Ambulatory referral to Infectious Disease; Future Ambulatory referral to Diagnostic Radiology; Future Impaired mobility -Established with home health for PT/OT. Wrote new order for rolling walker, current one isn't up to safety standard. 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 Orders: Walker rolling [facility]2024-06-16 22:14:15Upcoming Encounters Scheduled Referrals Name Type Priority Associated Diagnoses Order Schedule Ambulatory referral to Infectious Disease Outpatient Referral STAT Leg abscess Expected: 11/09/2023 (Approximate), Expires: 05/10/2024 Ambulatory referral to Diagnostic Radiology Outpatient Referral STAT Leg abscess Expected: 11/09/2023 (Approximate), Expires: 05/10/2024 Health Maintenance Due Date Last Done Comments Medicare Annual Wellness (AWV) 1935 Diabetes: Foot Exam 1945 Diabetes: Retinopathy Screening 1945 DTaP/Tdap/Td Vaccines (1 - Tdap) 08/03/1955 Diabetes: Urine Protein Screening 08/03/1955 Zoster Vaccines (1 of 2) 1986 Respiratory Syncytial Virus (RSV) or >=60 (1 - 1-dose 60+ series) 1996 Diabetes: Hemoglobin A1C 10/31/2020 07/31/2020, 09/27 Influenza Vaccine (Season Ended) 2024 Lipid Panel 07/05/2024 07/05/2023, 06/30, 07/13/2022, Additional history exists Pneumococcal Vaccine: 65+ Years Completed 07/28/2017, 03/18/2006 HIB Vaccines Aged Out No longer eligi ble based on patient's age to complete this topic HPV Vaccines Aged Out No longer eligi ble based on patient's age to complete this topic Hepatitis A Vaccines Aged Out No long er eligible based on patient's age to complete this topic Hepatitis B Vaccines Aged Out No long er eligible based on patient's age to complete this topic IPV Vaccines Aged Out No longer eligi ble based on patient's age to complete this topic Meningococcal Vaccine Aged Out No sonia heather eligible based on patient's age to complete this topic Rotavirus Vaccines Aged Out No longer eligible based on patient's age to complete this topic [id number] 22:14:15 Diagnosis Leg abscess - Primary Impaired mobility Other ill-defined conditions [id number] 22:14:15 [facility]
--- NOTE | 2024-09-19 16:29 | RAD REPORT ---
Extremity Venous Uni Ltd CLINICAL INDICATION: Male, 89 years old.SWELLING TECHNIQUE: Complete duplex sonography of the lower extremity veins was performed of the affected limb . The examination included compression for vein patency, color Doppler imaging and flow augmentation in response to distal compression of the distal external iliac, common femoral, femoral, popliteal, peroneal, tibial and great saphenous veins. [id number]. COMPARISON: No prior exams FINDINGS: Duplex sonography imaging demonstrates all deep veins examined to be fully compressible with spontane ous, phasic and augmented flow in the affected limb. Popliteal fossa cyst present that measures 7.3 x 3.4 x 4.4 cm. IMPRESSION: No evidence of deep venous thrombosis in the left lower extremity. Salazar's cyst measuring over 7 cm.
[2024-09-19 17:14] LABS: Absolute Eosinophils 0.1 K/uL (0-0.5); Absolute Lymphocytes (CBC) 2.3 K/uL (0.7-4.9); Absolute Monocytes 0.8 K/uL (0.1-1.3); Absolute Neutrophil 4.9 K/uL (1.8-8.0); Basophils % 0.2 % (0-1.3); Eosinophils % 0.9 % (0-4.4); Hematocrit 23.4 % (39.6-49.0); Lymphocytes % 28.2 % (15.3-44.8); MCV 79.8 fL (80-100); MPV 6.1 fL (7.6-11.3); Monocytes % 10.4 % (3.3-12.3); Neutrophils % 60.3 % (41.7-73.7); Nucleated Red Blood Cells % 0.1 % (0-0); Platelets 558 thou/uL (152-406); RBC Red Blood Cell Count 2.93 M/uL (4.33-5.43); Red Cell Distribution Width 14.9 % (12.1-15.2)
[2024-09-19 17:15] LABS: AST/SGOT 15 U/L (15-37); Albumin 2.5 g/dL (3.4-5.0); Albumin/Globulin Ratio 0.5 (1.1-1.8); Alkaline Phosphatase 57 U/L (45-117); Anion Gap 8.4 mEq/L (5.0-15.0); BUN Blood Urea Nitrogen 24 mg/dL (7-18); Bicarbonate 28 mEq/L (21-32); Bilirubin Direct 0.2 mg/dL (0-0.2); Bilirubin Indirect, Calculated 0.2 mg/dL (0.2-0.8); Bilirubin Total 0.4 mg/dL (0.2-1.0); Globulin 5.3 g/dL (2.3-3.5); Glomerular Filtration Rate 61 ml/min (=/>90); Glucose Level 111 mg/dL (74-106); Magnesium 2.4 mg/dL (1.6-2.4); NT PRO-BNP 3644 pg/mL (<450); Potassium 4.4 mEq/L (3.5-5.1); Protein, Total 7.8 g/dL (6.4-8.2); Sodium Level 134 mEq/L (136-145)
[2024-09-19 17:16] LABS: ALT/SGPT < 14 U/L (16-61); MCH 27.3 pg (27.0-35.0); MCHC 34.2 g/dL (32.0-36.0)
--- NOTE | 2024-09-19 17:41 | ER ---
Nurse's Notes [facility] Name: Eligio Sebastian Age: 89 yrs Sex: Male : 1935 Arrival Date: 09/19/2024 Time: 15:18 Bed 10 Private MD: Diagnosis: Salazar's cyst, left lower extremity edema, incidental anemia Presentation: 09/19 15:40 Chief complaint: Patient states: left leg swelling X 5-6 days , was sent by PCP for US iw of leg , pt has pain to calf area. Coronavirus screen: At this time, the client does not indicate any symptoms associated with coronavirus-19. Ebola Screen: No symptoms or risks identified at this time. Initial Sepsis Screen: Does the patient meet any 2 criteria? No. Patient's initial sepsis screen is negative. Does the patient have a suspected source of infection? No. Patient's initial sepsis screen is negative. Risk Assessment: Do you want to hurt yourself or someone else? Patient reports no desire to harm self or others. Onset of symptoms was September 14, 2024. 15:40 Method Of Arrival: Wheelchair iw 15:40 Acuity: YOKO 3 iw Historical: - Allergies: 15:42 No Known Allergies; iw - PMHx: 15:42 None; iw - PSHx: 15:42 bladder cancer; iw - Immunization history:: Adult Immunizations not up to date. - Infectious Disease History:: Denies. - Social history:: Smoking status: Patient denies any tobacco usage or history of. Screenin:02 [facility] ED Fall Risk Assessment (Adult) History of falling in the last 3 months, kj2 including since admission No falls in past 3 months (0 pts) Confusion or Disorientation No (0 pts) Intoxicated or Sedated No (0 pts) Impaired Gait Yes (1 pt) Mobility Assist Device Used No (0 pt) Altered Elimination No (0 pt) Score/Fall Risk Level 0 - 2 = Low Risk Maintained a safe environment, Hourly rounding (assess needs \T\ fall precautionary measures) done. Abuse screen: Denies threats or abuse. Denies injuries from another. Nutritional screening: No deficits noted. Tuberculosis screening: No symptoms or risk factors identified. Assessment: 16:01 General: Appears in no apparent distress. Behavior is calm, cooperative. Pain: kj2 Complains of pain in left leg Pain currently is 3 out of 10 on a pain scale. Neuro: Level of Consciousness is awake, alert, obeys commands, Oriented to person, place, time, situation. Cardiovascular: Patient's skin is warm and dry. Respiratory: Airway is patent Respiratory effort is unlabored. GI: No signs and/or symptoms were reported involving the gastrointestinal system. : No signs and/or symptoms were reported regarding the genitourinary system. 17:00 Reassessment: Patient appears in no apparent distress at this time. Patient and/or kj2 family updated on plan of care and expected duration. Pain level reassessed. Patient is alert, oriented x 3, equal unlabored respirations, skin warm/dry/pink. 17:49 Reassessment: Patient appears in no apparent distress at this time. Patient and/or kj2 family updated on plan of care and expected duration. Pain level reassessed. Patient is alert, oriented x 3, equal unlabored respirations, skin warm/dry/pink. Vital Signs: 15:41 BP 120 / 66; Pulse 88; Resp 19; Pulse Ox 100% on R/A; Weight 86.18 kg; Height 5 ft. 11 iw in. ; Pain 10/10; 17:49 BP 121 / 68; Pulse 84; Resp 18; Temp 98; Pulse Ox 100% on R/A; kj2 15:41 Body Mass Index 26.50 (86.18 kg, 180.34 cm) iw 15:41 Pain Scale: Adult iw ED Course: 15:25 Patient arrived in ED. im 15:27 Brie Bardales MD is Attending Physician. sp3 15:41 Triage completed. iw 15:45 Arm band placed on. iw 15:51 Nancy Cabrera, HAYDEN is Primary Nurse. kj2 16:03 Patient has correct armband on for positive identification. Bed in low position. Call kj2 light in reach. Adult w/ patient. Provided Education on: call light. 16:22 US Extremity Venous Unilateral Ltd In Process Unspecified. EDMS 16:51 Basic Metabolic Panel Sent. ty 16:51 CBC with Diff Sent. ty 16:51 LFT's Sent. ty 16:51 Magnesium Sent. ty 16:51 NT PRO-BNP Sent. ty 16:51 Missed attempt(s): 20 gauge in right antecubital area. blood collected and IV dc'd . ty Bleeding controlled, band aid applied, catheter tip intact. 17:50 No provider procedures requiring assistance completed. Patient did not have IV access kj2 during this emergency room visit. Administered Medications: No medications were administered Medication: 16:04 VIS not applicable for this client. kj2 Outcome: 17:40 Discharge ordered by . bonita 17:50 Discharged to home via wheelchair, with family, kj2 17:50 Condition: stable 17:50 Discharge instructions given to patient, family, Instructed on discharge instructions, follow up and referral plans. Demonstrated understanding of instructions, follow-up care, 18:06 Patient left the ED. kj2 Signatures: Dispatcher [employer] Lisa Sousa, RN RN Brie Fowler MD MD sp3 Elisa Garcia Tylor ty Jordan, Krystal, RN RN kj2 Corrections: (The following items were deleted from the chart) 15:45 15:42 PMHx: Hypertensive disorder; iw iw
--- NOTE | 2024-09-19 17:41 | EDPHYS ---
Physician Documentation [facility] Name: Eligio Sebastian Age: 89 yrs Sex: Male : 1935 Arrival Date: 09/19/2024 Time: 15:18 Bed 10 Private MD: ED Physician Brie Bardales HPI: 09/19 16:26 This 89 yrs old Male presents to ER via Wheelchair with complaints of Leg Swelling, sp3 Feet Swelling. 16:26 89-year-old male with history of hypertension in the past presents with left lower sp3 extremity swelling from the thigh distally for the last week. Patient went and saw PCP at [place] who referred him to the ED for ultrasound. He denies any redness, rash, injury or trauma, prior episodes of similar, prior DVT or PE, chest pain, shortness of breath, abdominal pain, fever, or any other signs or symptoms on ROS at this time. 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 He is on a prophylactic dose for 1 year. That was on the right side. His current symptoms are on the left side.. Historical: - Allergies: 15:42 No Known Allergies; iw - PMHx: 15:42 None; iw - PSHx: 15:42 bladder cancer; iw - Immunization history:: Adult Immunizations not up to date. - Infectious Disease History:: Denies. - Social history:: Smoking status: Patient denies any tobacco usage or history of. ROS: 16:28 Constitutional: Negative for fever, chills, and weight loss, Eyes: Negative for injury, sp3 pain, redness, and discharge, ENT: Negative for injury, pain, and discharge, Neck: Negative for injury, pain, and swelling, Cardiovascular: Negative for chest pain, palpitations, and edema, Respiratory: Negative for shortness of breath, cough, wheezing, and pleuritic chest pain, Abdomen/GI: Negative for abdominal pain, nausea, vomiting, diarrhea, and constipation, Back: Negative for injury and pain, Neuro: Negative for headache, weakness, numbness, tingling, and seizure, Psych: Negative for depression, anxiety, suicide ideation, homicidal ideation, and hallucinations, Allergy/Immunology: Negative for hives, rash, and allergies, Endocrine: Negative for neck swelling, polydipsia, polyuria, polyphagia, and marked weight changes, Hematologic/Lymphatic: Negative for swollen nodes, abnormal bleeding, and unusual bruising, 16:28 All other systems are negative, Exam: 16:33 Constitutional: This is a well developed, well nourished patient who is awake, alert, sp3 and in no acute distress. Head/Face: Normocephalic, atraumatic. Eyes: Pupils equal round and reactive to light, extra-ocular motions intact. Lids and lashes normal. Conjunctiva and sclera are non-icteric and not injected. Cornea within normal limits. Periorbital areas with no swelling, redness, or edema. ENT: Nares patent. No nasal discharge, no septal abnormalities noted. External auditory canals are clear. Oropharynx with no redness, swelling, or masses, exudates, or evidence of obstruction, uvula midline. Mucous membranes moist. Neck: Trachea midline, no thyromegaly or masses palpated, and no cervical lymphadenopathy. Supple, full range of motion without nuchal rigidity, or vertebral point tenderness. No Meningismus. Chest/axilla: Normal chest wall appearance and motion. Nontender with no deformity. No lesions are appreciated. Cardiovascular: Regular rate and rhythm with a normal S1 and S2. No gallops, murmurs, or rubs. Normal PMI, no JVD. No pulse deficits. Respiratory: Lungs have equal breath sounds bilaterally, clear to auscultation and percussion. No rales, rhonchi or wheezes noted. No increased work of breathing, no retractions or nasal flaring. Back: No spinal tenderness. No costovertebral tenderness. Full range of motion. Skin: Warm, dry with normal turgor. Normal color with no rashes, no lesions, and no evidence of cellulitis. Neuro: Awake and alert, GCS 15, oriented to person, place, time, and situation. Cranial nerves II-XII grossly intact. Motor strength 5/5 in all extremities. Sensory grossly intact. Cerebellar exam normal. Normal gait. Psych: Awake, alert, with orientation to person, place and time. Behavior, mood, and affect are within normal limits. 16:33 Musculoskeletal/extremity: Significant swelling left lower extremity from the thigh down with 3+ pitting edema. Distal pulse present. No calf tenderness. Knee range of motion is present.. Vital Signs: 15:41 BP 120 / 66; Pulse 88; Resp 19; Pulse Ox 100% on R/A; Weight 86.18 kg; Height 5 ft. 11 iw in. ; Pain 10/10; 17:49 BP 121 / 68; Pulse 84; Resp 18; Temp 98; Pulse Ox 100% on R/A; kj2 15:41 Body Mass Index 26.50 (86.18 kg, 180.34 cm) iw 15:41 Pain Scale: Adult iw MDM: 15:41 Medical Screening Exam initiated sp3 16:31 Data reviewed: vital signs, nurses notes, old medical records, lab test result(s), sp3 radiologic studies. ED course: 89-year-old male with significant swelling to the left lower extremity. Will obtain ultrasound to assess for DVT as well as general labs. Demential diagnosis includes lymphedema, DVT, at the localized process, among others. Disposition pending workup and patient course. Vital signs are normal.. 17:38 ED course: Ultrasound demonstrates large Salazar's cyst and no evidence of DVT. Patient sp3 is having no pain. I believe his large Salazar's cyst is impeding lymphatic drainage. I have advised patient to elevate his extremity he also follow-up with his long-established orthopedist for follow-up and potential intervention for the Salazar's cyst. On incidental lab findings, patient's hemoglobin is at 8.0. Patient states he is having no melena or GI blood loss or bleeding anywhere else. No prior history of anemia as far as he knows. But patient is a little uneasy/unsure about his past history or past laboratory levels. Vital signs are normal and I do not believe his anemia is acute. I advised him to follow-up with his PCP to obtain ongoing lab studies including iron, TIBC etc. for a full workup for his anemia. So he will follow-up with both his PCP and his orthopedist. Patient is resting comfortably again with normal vital signs. I do not believe he has any ongoing acute medical emergency requiring intervention at this time. We will print out his labs and reports and safely discharge him home.. 09/19 16:32 Order name: Basic Metabolic Panel; Complete Time: 17:26 sp3 09/19 16:32 Order name: CBC with Diff sp3 09/19 16:32 Order name: LFT's; Complete Time: 17:26 sp3 09/19 16:32 Order name: Magnesium; Complete Time: 17:26 sp3 09/19 16:32 Order name: NT PRO-BNP; Complete Time: 17:26 sp3 09/19 16:00 Order name: US Extremity Venous Unilateral Ltd; Complete Time: 16:33 sp3 09/19 16:32 Order name: Labs collected and sent; Complete Time: 16:51 sp3 Administered Medications: No medications were administered Disposition Summary: 09/19/24 17:40 Discharge Ordered Notes: Location: Home sp3 Condition: Stable sp3 Diagnosis - Salazar's cyst, left lower extremity edema, incidental anemia sp3 Followup: sp3 - With: Private Physician - When: Upon discharge from the Emergency Department - Reason: Continuance of care Discharge Instructions: - Discharge Summary Sheet sp3 - Anemia sp3 - Salazar Cyst sp3 Forms: - Medication Reconciliation Form sp3 - Antibiotic Education sp3 - Prescription Opioid Use sp3 - Patient Portal Instructions sp3 - Leadership Thank You Letter sp3 Signatures: Dispatcher [employer] Lisa Sousa RN RN iw Brie Bardales MD MD sp3 Corrections: (The following items were deleted from the chart) 15:45 15:42 PMHx: Hypertensive disorder; iw iw 16:33 16:33 BASIC METABOLIC PANEL+C.LAB.BRZ ordered. EDMS EDMS 16:33 16:33 CBC+H.LAB.BRZ ordered. EDMS EDMS 16:33 16:33 HEPATIC FUNCTION+C.LAB.BRZ ordered. EDMS EDMS 16:33 16:33 MAGNESIUM+C.LAB.BRZ ordered. EDMS EDMS 16:33 16:33 PROBNP+C.LAB.BRZ ordered. EDMS EDMS
[2024-09-19 19:06] VITALS: O2SAT 100
[2024-09-19 19:07] VITALS: BP 121/68; TEMP 98
[2024-09-19 19:32] LABS: Blood Morphology Comment NOTED (NOT SEEN); Platelet Estimate INCR; Polychromasia SLIGHT; White Blood Cell Scan OK (OK)
== END 2024-09-19 18:06 | disposition home or self-care (01) ==
LOC: ER 15:18
DX: M71.22 Synovial cyst of popliteal space [Baker], left knee (principal); D64.9 Anemia, unspecified
CPT/HCPCS: 36415; 80048; 80076; 83735; 83880; 85025; 93971; 99283